=== PATIENT | female | born 1970 | race Caucasian/White ===

== ENCOUNTER 2020-03-28 09:55 | Outpatient (CLI) | payer OTHER, SELFPAY ==
--- NOTE | ~2020-03-28 | MM_ITS ---
EXAMINATION: MM screening [facility] BI w evan HISTORY: Screening mammogram TECHNIQUE: Craniocaudal and mediolateral oblique 3-D tomosynthesis images were obtained and synthetic 2-D images were generated. CAD analysis was submitted and interpreted. COMPARISON: Comparison to multiple prior studies sequentially, with oldest reviewed study dated 09/22. BREAST PARENCHYMAL COMPOSITION: There are scattered areas of fibroglandular density. FINDINGS: There is no evidence of suspicious mass, calcification, or architectural distortion to sugg est malignancy in either breast. There has been no suspicious interval change. IMPRESSION: 1. No mammographic evidence of malignancy. 2. Recommend routine screening mammography in one year. BI-RADS Category 1: Negative Reviewed, dictated and finalized at location A.
== END 2020-03-28 09:56 | disposition home or self-care (01) ==
PROVIDERS: Visit Provider Nurse Practitioner
DX: Z12.31 Encounter for screening mammogram for malignant neoplasm of breast (principal)
CPT/HCPCS: 77063; 77067

== ENCOUNTER 2022-04-07 14:07 | Outpatient (CLI) | payer OTHER, SELFPAY ==
--- NOTE | ~2022-04-07 | MM_ITS ---
EXAMINATION: MM screening [facility] BI w evan HISTORY: Screening mammogram TECHNIQUE: Craniocaudal and mediolateral oblique 3-D tomosynthesis images were obtained and synthetic 2-D images were generated. CAD analysis was submitted and interpreted. COMPARISON: 03/28/2020, 02/06/2019, 02/01/2018 BREAST PARENCHYMAL COMPOSITION: There are scattered areas of fibroglandular density. FINDINGS: RIGHT BREAST: Biopsy changes are noted in the upper outer quadrant right breast There is no suspiciou s mass, calcification, or architectural distortion to suggest malignancy. There has been no significa nt interval change. LEFT BREAST: There is focal asymmetry in the middle third of the central breast. IMPRESSION: 1. Left breast focal asymmetry. 2. Additional mammographic views and possible breast ultrasound are recommended. BI-RADS Category 0: Incomplete: Needs additional imaging evaluation. Reviewed, dictated and finalized at location A. IMPRESSION: 1. Left breast focal asymmetry. 2. Additional mammographic views and possible breast ultrasound are recommended . BI-RADS Category 0: Incomplete: Needs additional imaging evaluation.
== END 2022-04-07 14:08 | disposition home or self-care (01) ==
PROVIDERS: Visit Provider Nurse Practitioner
DX: Z12.31 Encounter for screening mammogram for malignant neoplasm of breast (principal); R92.8 Other abnormal and inconclusive findings on diagnostic imaging of breast
CPT/HCPCS: 77063; 77067

== ENCOUNTER 2022-04-23 13:21 | Outpatient (CLI) | payer OTHER, SELFPAY ==
--- NOTE | ~2022-04-23 | MMUS_ITS ---
EXAMINATION: MM diagnostic [facility] LT w evan, US breast LT limited HISTORY: Left mammographic focal asymmetry reported on 04/07/2022 screening mammogram TECHNIQUE: Additional 3-D tomosynthesis images of the left breast were performed and synthetic 2-D im ages were generated. Rolled medial and rolled lateral craniocaudal views. CAD analysis was submitted and interpreted. High resolution upper outer and lower-outer quadrant left breast ultrasound was perf ormed. COMPARISON: 04/07/2022, 03/28/2020, 02/06/2019 screening mammogram examinations FINDINGS: MAMMOGRAPHIC FINDINGS: Approximately 3.5 mm circumscribed opacity is noted in the posterior outer mid left breast. ULTRASOUND: 1:00 8 cm from nipple: 2.4 mm sonolucency consistent with small cyst 4:00 2 cm from nipple: 2 x 2.7 mm cyst No suspicious mass or shadowing is detected. IMPRESSION: 1. Probable benign findings 2. 6 month diagnostic left mammogram and left breast ultrasound follow-up are recommended BI-RADS Category 3: Probably benign Reviewed, dictated and finalized at location A. IMPRESSION: 1. Probable benign findings 2. 6 month diagnostic left mammogram and left breast ultrasound follow-up are r ecommended BI-RADS Category 3: Probably benign
== END 2022-04-23 13:22 | disposition home or self-care (01) ==
PROVIDERS: Visit Provider Obstetrics & Gynecology Gynecology
DX: R92.8 Other abnormal and inconclusive findings on diagnostic imaging of breast (principal)
CPT/HCPCS: 76642; 77061; 77065; G0279

== ENCOUNTER 2022-10-23 10:20 | Outpatient (CLI) | payer OTHER, SELFPAY ==
--- NOTE | ~2022-10-23 | MMUS_ITS ---
EXAMINATION: MM diagnostic anibal LT w evan, US breast LT limited HISTORY: Six-month follow-up for probably benign left breast mass TECHNIQUE: Craniocaudal, mediolateral, and mediolateral oblique 3-D tomosynthesis images of the left breast were performed and synthetic 2-D images were generated. CAD analysis was submitted and interpr eted. High resolution left breast ultrasound was performed. COMPARISON: 04/23/2022, 04/07/2022, 03/28/2020, 02/06/2019 BREAST PARENCHYMAL COMPOSITION: There are scattered areas of fibroglandular density. FINDINGS: MAMMOGRAPHIC FINDINGS: The previously described mass in the upper outer quadrant of the breast is no longer identified. Ther e has been no suspicious interval change. No suspicious calcification or architectural distortion are identified. ULTRASOUND: The previously described sonographically detected mass at the 1:00 location is no longer identified. There is a stable 3 mm round, circumscribed, hypoechoic mass with no posterior features or internal v ascularity at the 4:00 location 2 cm from the nipple. IMPRESSION: 1. Stable sonographically detected left breast mass. 2. Recommend 6 month follow-up diagnostic mammogram and ultrasound. BI-RADS category 3, probably benign findings. Reviewed, dictated and finalized at location A. COMMUNICATIONS FIELD ENGINEER IMPRESSION: 1. Stable sonographically detected left breast mass. 2. Recommend 6 month follow-up diagnostic mammogram and ultrasound. BI-RADS category 3, probably benign findings.
== END 2022-10-23 10:21 | disposition home or self-care (01) ==
LOC: ANHIMG 10:21
PROVIDERS: Visit Provider Obstetrics & Gynecology Gynecology
DX: N60.02 Solitary cyst of left breast (principal); R92.8 Other abnormal and inconclusive findings on diagnostic imaging of breast
CPT/HCPCS: 76642; 77061; 77065; G0279

== ENCOUNTER 2023-06-21 12:29 | Outpatient (CLI) | payer OTHER, SELFPAY ==
--- NOTE | ~2023-06-21 | MMUS_ITS ---
EXAMINATION: MM diagnostic an[facility] BI w evan, US breast LT limited HISTORY: Six-month follow-up of stable sonographically detected left breast mass at 4:00 2 cm from ni pple TECHNIQUE: Bilateral full field ML, MLO and CC and spot left MLO, MLO and CC 3-D tomosynthesis images were performed and synthetic 2-D images were generated. CAD analysis was submitted and interpreted. High resolution limited left breast ultrasound examination at 12:00 and 4:00 was performed. COMPARISON: 10/23/2022 diagnostic left mammogram and limited left breast ultrasound 04/23/2022 diagnostic left mammogram and limited left breast ultrasound 04/07/2022 bilateral screening mammogram BREAST PARENCHYMAL COMPOSITION: There are scattered areas of fibroglandular density. FINDINGS: MAMMOGRAPHIC FINDINGS: There are 2 biopsy markers on the right; history of prior benign right breast biopsies. Approximately 3.9 no new circumscribed low-density opacity is noted in the anterior upper central lef t breast, benign in appearance. No suspicious mass, architectural distortion, malignant calcification, skin thickening or retraction of either breast is detected. ULTRASOUND: There is a benign calcification in the upper left breast. 4:00 2 cm from nipple: Interval decreased size of previously reported 3 mm, currently measuring appro ximately 1.2 x 1.6 mm. Interval decreased size is most consistent with benign process. IMPRESSION: 1. No mammographic evidence of malignancy 2. Routine annual mammographic screening is recommended. BI-RADS Category 2: Benign finding(s). Reviewed, dictated and finalized at location A. IMPRESSION: 1. No mammographic evidence of malignancy 2. Routine annual mammographic screening is recommended. BI-RADS Category 2: Benign finding(s).
== END 2023-06-21 12:30 | disposition home or self-care (01) ==
LOC: ANHIMG 12:34
PROVIDERS: Visit Provider Obstetrics & Gynecology Gynecology
DX: R92.8 Other abnormal and inconclusive findings on diagnostic imaging of breast (principal)
CPT/HCPCS: 76642; 77062; 77066; G0279

== ENCOUNTER 2023-08-11 11:31 | Outpatient (CLI) | payer OTHER, SELFPAY ==
[2023-08-11 13:29] LABS: Basophils Absolute Auto 0.1 K/mm3 (0.0-0.1); Basophils Percent Auto 0.6 % (0.2-1.2); Eosinophils Absolute Auto 0.1 K/mm3 (0-0.3); Eosinophils Percent Auto 1.3 % (0-4.4); Hematocrit 45.8 % (37.0-47.0); Hemoglobin 14.6 g/dL (12.0-15.0); Immature Granulocyte Absolute 0.02 K/mm3 (0.00-0.031); Immature Granulocyte Percent A 0.3 % (0-0.5); Lymphocytes Absolute Auto 1.54 K/mm3 (0.9-3.2); Lymphocytes Percent Auto 19.6 % (18.3-44.2); Mean Corpuscular HGB Conc 31.9 g/dl (32-36); Mean Corpuscular Volume 90.9 fl (80-100); Mean Platelet Volume 10.4 fl (7.4-10.4); Monocytes Absolute Auto 0.6 K/mm3 (0.1-0.6); Monocytes Percent Auto 7.8 % (2.6-8.5); Neutrophils Absolute Auto 5.5 K/mm3 (1.3-6.7); Neutrophils Percent Auto 70.4 % (45.5-73.1); Platelet Count Result 346 k/mm3 (150-375); Red Blood Count 5.04 M/mm3 (4.2-5.4); Red Cell Distribution Width 14.4 % (11.5-14.5); White Blood Count 7.8 K/mm3 (4.5-10.0)
[2023-08-11 13:38] LABS: INR 0.9; Prothrombin Time 13.1 Seconds (11.1-14.7)
[2023-08-11 15:21] LABS: Alanine Aminotransferase 20 U/L (6-35); Albumin Level 3.9 g/dL (3.5-5.1); Alkaline Phosphatase 73 U/L (38-126); Anion Gap 8 mmol/L (8-16); Aspartate Amino Transferase 29 U/L (14-36); Bilirubin,Total 0.6 mg/dL (0.2-1.3); Blood Urea Nitrogen 10 mg/dL (7-17); CRP 2.4 mg/dL (<1.0); Calcium 8.9 mg/dL (8.4-10.2); Carbon Dioxide 25 mmol/L (22-30); Chloride 106 mmol/L (98-107); Estimated Glomerular Filt Rate > 60; Glucose 150 mg/dL (65-110); Potassium 3.6 mmol/L (3.4-5.0); Sodium 139 mmol/L (137-145)
[2023-08-11 16:35] LABS: Vitamin D 25 Hydroxy 85.1 ng/mL
== END 2023-08-11 11:32 | disposition home or self-care (01) ==
LOC: ANHGOSHLAB 11:34
PROVIDERS: PCP Family Medicine; Visit Provider Nurse Practitioner Family
DX: Z00.00 Encounter for general adult medical examination without abnormal findings (principal); Z13.21 Encounter for screening for nutritional disorder; R23.3 Spontaneous ecchymoses; E53.8 Deficiency of other specified B group vitamins; I10 Essential (primary) hypertension
CPT/HCPCS: 36415; 80053; 82306; 82607; 85025; 85610; 85730; 86140

== ENCOUNTER 2023-11-01 07:53 | Outpatient (CLI) | payer OTHER, SELFPAY | END 2023-11-01 07:54 | disposition home or self-care (01) | LOC: ANHAUDIO 07:53 | PROVIDERS: PCP Family Medicine; Visit Provider Otolaryngology | DX: G43.909 Migraine, unspecified, not intractable, without status migrainosus (principal); H90.6 Mixed conductive and sensorineural hearing loss, bilateral; H81.10 Benign paroxysmal vertigo, unspecified ear; H90.42 Sensorineural hearing loss, unilateral, left ear, with unrestricted hearing on the contralateral side | CPT/HCPCS: 92557; 92567 ==

== ENCOUNTER → 2023-11-26 13:41 | Outpatient (CLI) | payer OTHER, SELFPAY ==
--- NOTE | ~2023-11-26 | XR_ITS ---
XR chest 2V DATE: 11/26/2023 14:07 INDICATION: Shortness of breath, cough for one week. Previous smoker. TECHNIQUE: PA and lateral views COMPARISON: None FINDINGS: Normal heart size. No hilar or mediastinal enlargement. No pulmonary infiltrate or consolid ation, pleural effusion or pulmonary vascular congestion or pneumothorax is detected. IMPRESSION: No active cardiopulmonary disease Reviewed, dictated and finalized at location B. UENCY CHECKER
== END ==
PROVIDERS: PCP Nurse Practitioner Family; Visit Provider Nurse Practitioner Family
DX: R06.02 Shortness of breath (principal); R04.2 Hemoptysis
CPT/HCPCS: 71046

== ENCOUNTER 2023-12-04 10:47 | Outpatient (CLI) | payer OTHER, SELFPAY ==
--- NOTE | ~2023-12-04 | MR_ITS ---
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 These were followed by axial T2-weigh maco, diffusion weighted, gradient, and FLAIR images. Coronal and axial thin cut T1-weighted and T2-we ighted images were performed through the internal auditory canals. Following intravenous administrati on of 20 cc MultiHance gadolinium, T1-weighted fat-sat imaging was performed through the brain in the axial and coronal planes. Thin cut T1-weighted postcontrast imaging was also performed through the i nternal auditory canals in the axial and coronal planes. Findings: No abnormal signal seen in the brain parenchyma. No acute infarct or intracranial hemorrhag e seen. No intracranial mass identified. Ventricles and subarachnoid spaces are unremarkable. Orbits are unremarkable. Paranasal sinuses and m astoid air cells are clear. Major intracranial flow voids appear intact. No mass lesion identified at the CP angles or internal auditory canals. No abnormal postcontrast enhancement identified. IMPRESSION: Unremarkable exam. Reviewed, dictated and finalized at location M. A COTTA ROOFER IMPRESSION: Unremarkable exam.
== END 2023-12-04 10:48 | disposition home or self-care (01) ==
LOC: ANHIMG 10:47
PROVIDERS: PCP Nurse Practitioner Family; Visit Provider Otolaryngology
DX: D33.3 Benign neoplasm of cranial nerves (principal); H90.42 Sensorineural hearing loss, unilateral, left ear, with unrestricted hearing on the contralateral side
CPT/HCPCS: 70553; A9577

== ENCOUNTER 2023-12-30 16:08 | Emergency (ER) | payer OTHER, SELFPAY ==
--- NOTE | ~2023-12-30 | XR_ITS ---
EXAMINATION: XR foot RT min 3V DATE: 12/30/2023 16:30 INDICATION: Right foot pain TECHNIQUE: Dorsoplantar, lateral, and 2 oblique views of the right foot were obtained. COMPARISON: None. FINDINGS: Bone alignment is normal. There is subtle heterotopic ossification projecting dorsal to the distal talus on the lateral view. There is dorsal soft tissue swelling overlying the midfoot. A plan tar calcaneal enthesophyte is noted. The joint spaces are normal. IMPRESSION: 1. Dorsal soft tissue swelling of the foot with subtle heterotopic ossification projecting dorsal to the distal talus on the lateral view. Finding could reflect small chip fracture. Recommend correlatio n for point tenderness at this site. Reviewed, dictated and finalized at location L. CIATE BRAND MANAGER IMPRESSION: 1. Dorsal soft tissue swelling of the foot with subtle heterotopic ossification projecting dorsal to the distal talus on the lateral view. Finding could refle ct small chip fracture. Recommend correlation for point tenderness at this site .
[2023-12-30 16:22] VITALS: BP 133/93; PULSE 111; RESP 20; TEMP 36.2; O2SAT 100
--- NOTE | 2023-12-30 16:22 | ED.FALL ---
HPI - Fall General Chief Complaint: Extremity Injury, Lower Stated Complaint: Right Foot Pain/ Left Hip Time Seen by Provider: 12/30/23 16:11 Source: patient Mode of arrival: ambulatory Limitations: no limitations History of Present Illness HPI Narrative: Patient is a 53-year-old female who presents with right foot pain after rolling foot and falling last Wednesday. Patient reports foot is turpentine distiller to touchmid foot and is very bruised at toes. Patient still able ambulate. Denies any numbness, tingling or weakness to foot. Related Data Home Medications Medication Instructions Recorded Confirmed cetirizine 10 mg tablet (Zyrtec) 10 mg PO DAILY 08/11/23 12/30/23 desogestrel 0.15 mg-ethinyl 1 tablet PO DAILY 08/11/23 12/30/23 estradiol 0.03 mg tablet (Apri) triamcinolone acetonide 0.1 % 1 applic topical BID 08/11/23 12/30/23 topical cream clotrimazole-betamethasone 1 1 applic topical DIRECTED 10/11/23 12/30/23 %-0.05 % topical cream Allergies Allergy/AdvReac Type Severity Reaction Status Date / Time grass pollen Allergy Unknown Asthma Verified 12/30/23 16:31 No Known Allergies Allergy Verified 12/30/23 16:31 Review of Systems Review of Systems: All systems reviewed & are unremarkable except as noted in HPI and below Constitutional: Constitutional: Denies body ache(s), Denies chills, Denies fatigue, Denies fever(s), Denies headache(s), Denies malaise and Denies weakness Eyes: Eyes: Denies blurry vision, Denies irritation and Denies loss of vision ENT: Denies otalgia, Denies headache(s), Denies nasal discharge, Denies sinus pain and Denies sore throat Cardiovascular: Cardiovascular: Denies chest pain, Denies irregular heart rhythm and Denies dyspnea Respiratory: Respiratory: Denies dyspnea Gastrointestinal: Gastrointestinal: Denies abdominal pain, Denies melena, Denies hematochezia, Denies diarrhea, Denies nausea and Denies vomiting Musculoskeletal: Musculoskeletal: Denies back pain, Denies myalgias and Denies arthralgias Integumentary/Breasts: Skin/Breast: Denies pruritus and Denies rash Neurologic: Denies headache(s), Denies loss of vision and Denies weakness Psychiatric: Psychiatric: Reports no additional psychiatric complaints Endocrine: Endocrine: Denies fatigue PMFSH Past Medical History Medical History Allergies Asthma IBS (irritable bowel syndrome) Migraine Petechiae SOB (shortness of breath) on exertion Vertigo Surgical History Surgical History H/O shoulder surgery Left 03/25/2023 Family History Family History Father Hypertension Heart disease Cerebrovascular accident Mother Asthma Diabetes mellitus Hypertension Depression Heart disease Sibling Asthma Hypertension Depression Heart disease Thyroid disorder Daughter Asthma Grandparent Hypertension Heart disease Cerebrovascular accident Social History Social History Smoking status: Former smoker Alcohol intake: never Substance use: current Substance use type: does not use Comments At time of signature, agree with nursing past medical, surgical, social and family history. There is no relevant family history pertinent to the presenting complaint. Exam Const: General: cooperative, healthy appearing, comfortable, no acute distress and well nourished Nutritional Appearance: well nourished Orientation/consciousness: patient oriented x3 Limitations: no limitations HENMT: Head: normal to inspection, normocephalic and atraumatic Ears: hearing grossly normal bilaterally and external ears normal Face/Nose/Sinus: Normal external nose present, normal facial exam and face symmetric Face and sinus: normal facial exam and face symmetric Mouth: Yes lip normal Eyes: General: appe
== END 2023-12-30 17:45 | disposition home or self-care (01) ==
PROVIDERS: Emergency Provider Nurse Practitioner Family; PCP Nurse Practitioner Family
DX: S92.901A Unspecified fracture of right foot, initial encounter for closed fracture (principal); Z79.899 Other long term (current) drug therapy; Z87.891 Personal history of nicotine dependence; W19.XXXA Unspecified fall, initial encounter
CPT/HCPCS: 29515; 73630; 99214; G0463

== ENCOUNTER 2024-04-10 15:43 | Emergency (ER) | payer OTHER, SELFPAY ==
--- NOTE | ~2024-04-10 | XR_ITS ---
EXAMINATION: XR chest 2V DATE: 04/10/2024 16:33 INDICATION: Worsening chest pain. Shortness of breath. TECHNIQUE: Frontal and lateral views of the chest were obtained. COMPARISON: Chest 2 views 11/26/2023 FINDINGS: There is no pneumonia, pleural effusion, or pneumothorax. The heart size is normal. There i s a suture anchor in left humeral head. IMPRESSION: 1. No acute cardiopulmonary disease. Reviewed, dictated and finalized at location A.
--- NOTE | 2024-04-10 15:44 | ECG_ITS ---
SEE SCANNED COPY FOR CONFIRMED REPORT MTDD
[2024-04-10 15:46] VITALS: PULSE 115; RESP 18; TEMP 37.1; O2SAT 99
[2024-04-10 16:05] LABS: Basophils Absolute Auto 0.1 K/mm3 (0.0-0.1); Basophils Percent Auto 0.7 % (0.2-1.2); Eosinophils Absolute Auto 0.1 K/mm3 (0-0.3); Eosinophils Percent Auto 0.9 % (0-4.4); Hematocrit 44.6 % (37.0-47.0); Hemoglobin 14.6 g/dL (12.0-15.0); Immature Granulocyte Absolute 0.04 K/mm3 (0.00-0.031); Immature Granulocyte Percent A 0.4 % (0-0.5); Lymphocytes Absolute Auto 2.32 K/mm3 (0.9-3.2); Mean Corpuscular HGB Conc 32.7 g/dl (32-36); Mean Corpuscular Hemoglobin 28.3 pg (26-34); Mean Corpuscular Volume 86.4 fl (80-100); Mean Platelet Volume 9.9 fl (7.4-10.4); Monocytes Absolute Auto 0.6 K/mm3 (0.1-0.6); Monocytes Percent Auto 6.5 % (2.6-8.5); Neutrophils Absolute Auto 5.9 K/mm3 (1.3-6.7); Neutrophils Percent Auto 65.5 % (45.5-73.1); Platelet Count Result 306 k/mm3 (150-375); Red Blood Count 5.16 M/mm3 (4.2-5.4); Red Cell Distribution Width 14.2 % (11.5-14.5); White Blood Count 8.9 K/mm3 (4.5-10.0)
--- NOTE | 2024-04-10 16:16 | ED.GENADULT ---
HPI - General Adult General Chief complaint: Chest Pain <Sarah Ortiz APRN - Last Filed: 04/10/24 16:24> Stated complaint: chest pain, sob <Sarah Ortiz BREWERY TECHNICIAN - Last Filed: 04/10/24 16:24> Time Seen by Provider: 04/10/24 16:16 <Sarha Oliva March BREWERY TECHNICIAN - Last Filed: 04/10/24 16:24> Focused HPI: Chrissy Llanos is a 53 y/o female who presents with reports of having a hard time breathing for about 10 days that she thought was related to acid reflux burning her esophagus, she called her PCP the following day 9 days ago and was sent a new inhaler Budesonide and formoterol - then she got over heated this past Wednesday while mowing and started to have mid sternal and then tightness across chest and she states it felt like someone was sitting on top of her. She states that since Wednesday she is still having some chest pain she states stabbing to the left side, pressure across the whole chest and having an upper back ache between her shoulder blades SHe also state she feels nausea/queazy feeling PMHx: of HTN/ slight asthma / previous smoker GENERAL: no acute distress. HEAD: Normocephalic, atraumatic. CHEST: Clear to auscultation. ?No respiratory distress. HEART: Regular rate and rhythm.? NEURO: ?Alert and oriented x3. Patient screened in triage and initial orders placed.? ?Additional care and disposition to be based upon?diagnostic testing and treatment. <Sarah Ortiz, MARICRUZ - Last Filed: 04/10/24 16:24> Source: patient <Darrell Starr MD - Last Filed: 04/10/24 20:22> Mode of arrival: ambulatory <Darrell Starr MD - Last Filed: 04/10/24 20:22> Limitations: no limitations <Darrell Starr MD - Last Filed: 04/10/24 20:22> History of Present Illness HPI narrative: 53-year-old with a history of asthma, hypertension and with the complaints of midsternal chest pain on and off for last 10 days. Patient states the pain is mostly in the epigastric area gets better after eating food. She also states that 2 days ago while she was moving well and she got overheated and her pain worsen she was also short of breath. She saw her primary doctor the day EKG in the office and was advised to go to the ER. No previous history of CAD. Patient states that she had stress test done 2 years ago in [place] and was told it was unremarkable. <Darrell Starr MD - Last Filed: 04/10/24 20:22> Onset (ago): day(s) (10) <Darrell Starr MD - Last Filed: 04/10/24 20:22> Severity: moderate <Darrell Starr MD - Last Filed: 04/10/24 20:22> Related Data Home medications: Home Medications Medication Instructions Recorded Confirmed cetirizine 10 mg tablet (Zyrtec) 10 mg PO DAILY 08/11/23 04/10/24 desogestrel 0.15 mg-ethinyl 1 tablet PO DAILY 08/11/23 04/10/24 estradiol 0.03 mg tablet (Apri) clotrimazole-betamethasone 1 1 applic topical DIRECTED 10/11/23 04/10/24 %-0.05 % topical cream <Sarah Ortiz, BREWERY TECHNICIAN - Last Filed: 04/10/24 16:24> Allergies/adverse reactions: Allergies Allergy/AdvReac Type Severity Reaction Status Date / Time grass pollen Allergy Unknown Asthma Verified 04/10/24 14:38 dust Allergy Unknown Unknown Uncoded 04/10/24 14:38 <Sarah Ortiz, BREWERY TECHNICIAN - Last Filed: 04/10/24 16:24> [facility] Past Medical History Medical History: Medical History Allergies Asthma Chest pain at rest IBS (irritable bowel syndrome) Migraine Petechiae Right foot sprain SOB (shortness of breath) on exertion Vertigo <Sarah Ortiz, BREWERY TECHNICIAN - Last Filed: 04/10/24 16:24> Surgical History Surgical History: Surgical History H/O shoulder surgery Left 03/25/2023 <Sarah Ortiz, BREWERY TECHNICIAN - Last Filed: 04/10/24 16:24> Family History Family History: Family History Father Hypertension Heart disease Cerebrovascular accident Mother
[2024-04-10 16:18] LABS: Alanine Aminotransferase 19 U/L (6-35); Albumin Level 4.6 g/dL (3.5-5.1); Alkaline Phosphatase 85 U/L (38-126); Anion Gap 14 mmol/L (4-12); Aspartate Amino Transferase 24 U/L (14-36); Bilirubin,Total 0.6 mg/dL (0.2-1.3); Blood Urea Nitrogen 14 mg/dL (7-17); Calcium 9.2 mg/dL (8.4-10.2); Carbon Dioxide 19 mmol/L (22-30); Chloride 105 mmol/L (98-107); Estimated CRCL calculation 81 ml/min; Estimated Glomerular Filt Rate > 60; Glucose 158 mg/dL (65-110); Lipase 79 U/L (23-300); Potassium 3.6 mmol/L (3.4-5.0); Sodium 138 mmol/L (137-145)
[2024-04-10 16:19] LABS: Prothrombin Time 13.1 Seconds (11.1-14.7)
[2024-04-10 16:20] LABS: Partial Thromboplastin Time 24.3 Seconds (22.3-36.8)
[2024-04-10 16:30] LABS: Troponin I < 0.012 ng/mL (0.000-0.034)
[2024-04-10 18:14] LABS: D Dimer 0.32 ug/mL (<0.48)
[2024-04-10 18:16] LABS: NT Pro B Type Natriuretic Pept 116 pg/mL (19.9-100)
[2024-04-10 18:46] VITALS: BP 150/92; PULSE 91; RESP 16; O2SAT 100
--- NOTE | 2024-04-10 18:47 | ECG_ITS ---
SEE SCANNED COPY FOR CONFIRMED REPORT MTDD
[2024-04-10 19:17] LABS: Troponin I < 0.012 ng/mL (0.000-0.034)
[2024-04-10 19:18] VITALS: BP 150/92; PULSE 97; RESP 20; O2SAT 98
[2024-04-10] MEDS: KETOROLAC 30 MG/ML VIAL (*BKC) IM (19:51)
== END 2024-04-10 20:24 | disposition home or self-care (01) ==
PROVIDERS: Nurse Practitioner Family; Emergency Provider Family Medicine; PCP Nurse Practitioner Family
DX: R07.2 Precordial pain (principal); J45.909 Unspecified asthma, uncomplicated; I10 Essential (primary) hypertension; K58.9 Irritable bowel syndrome, unspecified; Z87.891 Personal history of nicotine dependence; R94.31 Abnormal electrocardiogram [ECG] [EKG]
CPT/HCPCS: 36415; 71046; 80053; 83690; 83880; 84484; 85025; 85380; 85610; 85730; 93005; 96372; 99284; J1885

== ENCOUNTER 2024-04-13 11:35 | Outpatient (CLI) | payer OTHER, SELFPAY | END 2024-04-13 11:36 | disposition home or self-care (01) | LOC: ANHGOSHLAB 11:37 | PROVIDERS: PCP Nurse Practitioner Family; Visit Provider Nurse Practitioner | DX: E55.9 Vitamin D deficiency, unspecified (principal) | CPT/HCPCS: 36415; 82306 ==

== ENCOUNTER 2024-04-20 15:00 | Outpatient (CLI) | payer OTHER, SELFPAY ==
--- NOTE | ~2024-04-20 | CT_ITS ---
EXAMINATION: CT sinus wo con DATE: 04/20/2024 15:35 INDICATION: Chronic maxillary sinusitis. TECHNIQUE: Computed tomography (CT) of the paranasal sinuses was performed without intravenous contra st. The dose-length product (DLP) was 294.13 mGy-cm. Iterative reconstruction was used. COMPARISON: None FINDINGS: Poorly pneumatized frontal sinuses. There is otherwise normal development and pneumatizatio n of the paranasal sinuses. The sphenoid, ethmoid, and maxillary sinuses are clear. The bilateral ost iomeatal complexes are patent. Visualized soft tissues are unremarkable. IMPRESSION: Poorly pneumatized frontal sinuses, otherwise normal CT sinus findings. Reviewed, dictated and finalized at location K.
== END 2024-04-20 15:01 | disposition home or self-care (01) ==
PROVIDERS: PCP Nurse Practitioner Family; Visit Provider Otolaryngology
DX: J34.89 Other specified disorders of nose and nasal sinuses (principal); J32.0 Chronic maxillary sinusitis; R51.9 Headache, unspecified
CPT/HCPCS: 70486

== ENCOUNTER 2024-04-26 10:00 | Outpatient (RCR) | payer OTHER, SELFPAY ==
--- NOTE | 2024-03-15 12:23 | OPREHPOC ---
Outpatient Therapy Plan of Care This is a Multidisciplinary Plan of Care that may contain components documented by all disciplines (PT, OT, and ST.) PT Problem 1 PT Problem #1 Knowledge Deficit PT Goal 1 Goal 1. Patient will perform independent HEP Target Visit 2 PT Problem 2 PT Problem #2 Pain PT Goal 1 Goal 1. No pain with pelvic exam 2. Patient able to sit at least 30 minutes without pain Target Visit 5 PT Problem 3 PT Problem #3 Impaired Strength PT Goal 1 Goal 1. Improve sonali hip strength to 5/5 in all planes 2. Improve pelvic floor strength to 3/5 and endurance to 10 seconds to decrease incontinence Target Visit 5
--- NOTE | 2024-03-15 12:23 | PTOPEVAL1 ---
Assessment and note entered by Sharon Knight DPT Evaluation Information Assessment Status Evaluation Subjective Information The patient reports pelvic pain that she has always had with intercourse but has recently gotten dramatically worse after a fall and landing on her L hip in December. Also fractured her R foot during that fall and went to therapy elsewhere. Pain with pelvic exam. Highest 8/10 and lowest 2/10. Also reports frequent incontinence, multiple times a day and uses a washrag to prevent leaks otherwise she will need to change clothes. Voids 5-6 times a day and 1-2 at night. Pain with sitting and is unable to sit to watch tv right now . BM 2-3 times a day, often gets diarrhea. Two previous vaginal deliveries with stitching/tearing . No other TECHNICAL COMMUNICATOR or b/b history. Patient goal: decrease pain Returns to MD in August Reported Pain Level Pain Score 5: Self Report Assessment PT Clinical Summary The patient is presenting to skilled therapy with an exacerbation of pelvic pain following a fall in December. She presents with increased pelvic floor muscle tone and pain on exam, and decreased hip, core, and pelvic floor strength which are contributing to her pain and difficulty with activities including sitting. She will highly benefit from therapy to address these impairments in order to reduce pain and improve function. Plan of Care Interventions Electrical Stimulation,Gait Training,Hot Pack/Cold Pack,Manual Therapy,Neuro Re-education,Patient/ Caregiver Education,Therapeutic Activities, Therapeutic Exercise PT Services Indicated Yes Treatment Frequency and 1 time a week for 5 visits Duration These treatments will address the objective and functional deficits as defined above. The patient will be advanced safely and appropriately in order for the patient to progress towards his/her prior level of function. Additional exercises will be introduced and as well as a comprehensive home exercise program upon discharge, if needed, ?to ensure carryover of functional gains achieved in the clinic. This treatment plan has been reviewed and agreement upon by the patient.
--- NOTE | 2024-04-26 10:26 | OPREHPOC ---
Outpatient Therapy Plan of Care This is a Multidisciplinary Plan of Care that may contain components documented by all disciplines (PT, OT, and ST.) PT Problem 1 PT Problem #1 Knowledge Deficit PT Goal 1 Goal 1. Patient will perform independent HEP Target Visit 2 Progress Met PT Problem 2 PT Problem #2 Pain PT Goal 1 Goal 1. No pain with pelvic exam 2. Patient able to sit at least 30 minutes without pain Target Visit 5 Progress Met PT Problem 3 PT Problem #3 Impaired Strength PT Goal 1 Goal 1. Improve sonali hip strength to 5/5 in all planes 2. Improve pelvic floor strength to 3/5 and endurance to 10 seconds to decrease incontinence Target Visit 5 Progress Partially Met Comment 1. 4+/5 2. not met
--- NOTE | 2024-04-26 10:26 | PTOPDC ---
Assessment and note entered by Sharon Knight DPT Evaluation Information Assessment Status Discharge Subjective Information Highest pain in the last week 3/10 and lowest 0/10 . Pain is not as intense or as often as prior to therapy. Still has pain with sitting certain ways but she is able to adjust to eliminate pain. Unsure if continued dyspareunia. Incontinence with a cough or sneeze, 2 days in the last week. Still using a wash rag as a precaution. Overall feels confident discharging from therapy at this time. Reported Pain Level Pain Score 0: Self Report Assessment PT Clinical Summary The patient has made good progress in therapy and reports significantly decreased pain overall. She also reports decreased frequency of incontinence, is now occurring 2 times a week instead of daily. She demonstrates improved core and LE strength and no pelvic floor pain this visit. Due to her progress plan for discharge at this time, she has been educated in a thorough HEP and to follow up with MD and/or PT as needed. Plan of Care PT Services Indicated No
== END 2024-04-26 11:51 | disposition home or self-care (01) ==
LOC: ANHGOSHPT 10:00
PROVIDERS: PCP Nurse Practitioner Family; Visit Provider Nurse Practitioner
DX: R10.2 Pelvic and perineal pain (principal)
CPT/HCPCS: 97110; 97140; 97161; 97530

== ENCOUNTER 2024-07-05 14:56 | Outpatient (CLI) | payer OTHER, SELFPAY ==
--- NOTE | ~2024-07-05 | MM_ITS ---
EXAMINATION: MM screening [facility] BI w evan HISTORY: Screening TECHNIQUE: Craniocaudal and mediolateral oblique 3-D tomosynthesis images were obtained and synthetic 2-D images were generated. CAD analysis was submitted and interpreted. COMPARISON: Comparison to multiple prior studies sequentially, with oldest reviewed study dated 02/06. BREAST PARENCHYMAL COMPOSITION: Not dense: There are scattered areas of fibroglandular density. FINDINGS: There is no evidence of suspicious mass, calcification, or architectural distortion to sugg est malignancy in either breast. There has been no suspicious interval change. IMPRESSION: 1. No mammographic evidence of malignancy. 2. Recommend routine screening mammography in one year. BI-RADS Category 1: Negative Reviewed, dictated and finalized at location B.
== END 2024-07-05 14:57 | disposition home or self-care (01) ==
LOC: ANHIMG 14:57
PROVIDERS: PCP Family Medicine; Visit Provider Nurse Practitioner
DX: Z12.31 Encounter for screening mammogram for malignant neoplasm of breast (principal)
CPT/HCPCS: 77063; 77067

== ENCOUNTER 2024-08-23 10:51 | Outpatient (CLI) | payer OTHER, SELFPAY ==
--- NOTE | ~2024-08-23 | US_ITS ---
EXAMINATION: US thyroid DATE: 08/23/2024 11:22 INDICATION: Nontoxic single thyroid nodule. TECHNIQUE: Multiple ultrasound images of the thyroid were obtained. COMPARISON: None. FINDINGS: The right thyroid lobe measures 4.6 x 1.4 x 1.9 cm. The left thyroid lobe measures 4.6 x 1.2 x 1.9 c m. In the left thyroid lobe, there is a 10 mm solid, hypoechoic, wider than tall nodule with smooth margin without echogenic foci (TI-RADS TR4). In the left thyroid lobe, there is a 3 mm nodule. In the left thyroid lobe, there is a 2 mm nodule. In the right thyroid lobe, there is a 7 mm solid, hypoech oic, wider than tall nodule with smooth margin without echogenic foci (TR4). In the right thyroid lob e, there is a 4 mm nodule. In the thyroid isthmus, there is a 9 mm solid, hypoechoic, wider than tall nodule with smooth margin without echogenic foci (TR4). IMPRESSION: 1. Small thyroid nodules. Thyroid ultrasound is recommended in one year. Reviewed, dictated and finalized at location A.
== END 2024-08-23 10:52 | disposition home or self-care (01) ==
LOC: MICIMG 10:51
PROVIDERS: PCP Family Medicine; Visit Provider Family Medicine
DX: E04.2 Nontoxic multinodular goiter (principal)
CPT/HCPCS: 76536

== ENCOUNTER 2024-11-23 17:40 | Emergency (ER) | payer OTHER, SELFPAY ==
--- NOTE | ~2024-11-23 | XR_ITS ---
XR hand LT min 3V Ordering provider: Ledy La APRN History: . felt a pop, pain in left thumb/1st metacarpal, . Comparison: None. FINDINGS: BONES: No definite acute fracture or dislocation. Possibility of a fracture in the distal metaphysis of the proximal phalanx of the left thumb is not excluded. Follow-up advised. JOINT SPACES: Well maintained. SOFT TISSUES: Unremarkable. IMPRESSION: No definite acute osseous abnormality left hand. Possibility of a fracture in the distal metaphysis o f the proximal phalanx of the left thumb is not excluded. Clinical correlation and Follow-up advised. Reviewed, dictated and finalized at location A. TRICAL DESIGN TECHNICIAN IMPRESSION: No definite acute osseous abnormality left hand. Possibility of a fracture in t he distal metaphysis of the proximal phalanx of the left thumb is not excluded. Clinical correlation and Follow-up advised.
[2024-11-23 18:00] VITALS: BP 149/97; PULSE 76; RESP 16; TEMP 36.7; O2SAT 100
--- NOTE | 2024-11-23 18:01 | ED_ITS ---
HPI - Extremity Injury (Upper) General Chief Complaint: Extremity Problem,Nontraumatic Stated Complaint: left hand issue Time Seen by Provider: 11/23/24 17:41 Source: patient Mode of arrival: ambulatory Limitations: no limitations History of Present Illness HPI narrative: Patient is a 54-year-old female who presents with left hand pain after feeling a pop yesterday. Patient reports it is painful to move the thumb in all directions. Has been wearing brace since it happened. Denies any numbness, tingling, weakness. Related Data Home Medications ?Medication ?Instructions ?Recorded ?Confirmed ?Last Taken ?Type cetirizine 10 mg tablet (Zyrtec) 10 mg PO DAILY 08/11/23 11/23/24 Unknown History metoprolol succinate 25 mg 25 mg PO DAILY 08/14/24 11/23/24 Unknown History tablet,extended release 24 hr gabapentin 300 mg capsule 300 mg PO HS PRN pain 11/02/24 11/02/24 Unknown History hydrocodone 5 mg-acetaminophen 325 2 tablet PO Q4H PRN pain 11/02/24 11/23/24 Unknown History mg tablet Allergies Allergy/AdvReac Type Severity Reaction Status Date / Time strawberry Allergy Mild Abdominal Verified 11/23/24 18:22 Pain grass pollen Allergy Unknown Asthma Verified 11/23/24 18:22 dust Allergy Unknown Unknown Uncoded 11/23/24 18:22 peanuts AdvReac Mild Abdominal Uncoded 11/23/24 18:22 Pain Review of Systems Review of Systems: All systems reviewed & are unremarkable except as noted in HPI and below Constitutional: Constitutional: Denies body ache(s), Denies chills, Denies fatigue, Denies fever(s), Denies headache(s), Denies malaise and Denies weakness Eyes: Eyes: Denies blurry vision, Denies irritation and Denies loss of vision ENT: Denies otalgia, Denies headache(s), Denies nasal discharge, Denies sinus pain and Denies sore throat Cardiovascular: Cardiovascular: Denies chest pain, Denies irregular heart rhythm and Denies dyspnea Respiratory: Respiratory: Denies dyspnea Gastrointestinal: Gastrointestinal: Denies abdominal pain, Denies melena, Denies hematochezia, Denies diarrhea, Denies nausea and Denies vomiting Musculoskeletal: Musculoskeletal: Denies back pain, Denies myalgias and Reports arthralgias Integumentary/Breasts: Skin/Breast: Denies pruritus and Denies rash Neurologic: Denies headache(s), Denies loss of vision and Denies weakness Psychiatric: Psychiatric: Reports no additional psychiatric complaints Endocrine: Endocrine: Denies fatigue PMFSH Past Medical History Medical History Prediabetes Vesicular eczema of hands and feet Deafness in left ear GERD (gastroesophageal reflux disease) Right foot sprain Sensorineural hearing loss, unilateral, left ear, with unrestricted hearing on the contralateral side Asthma Chronic nonallergic rhinitis Hypertension BPPV (benign paroxysmal positional vertigo) Vertigo IBS (irritable bowel syndrome) Migraine Surgical History Surgical History H/O shoulder surgery Left 03/25/2023 Family History Family History Father Hypertension Heart disease Cerebrovascular accident Mother Asthma Diabetes mellitus Hypertension Depression Heart disease Sibling Asthma Hypertension Depression Heart disease Thyroid disorder Daughter Asthma Grandparent Hypertension Heart disease Cerebrovascular accident Social History Social History Social History: Caffeine-daily Smoking status: Former smoker Tobacco type: cigarettes Smoking end date: 11/22/18 Alcohol intake: never Substance use: never Substance use type: does not use Living arrangements: with family Occupation/Education: unemployed Gender identity (if verbalized by the patient): Female Spiritual care concerns: No Agree to blood products: Yes Comments At time of signature, agree with nursing past medical, surgical, social and family history. There is no relevant family history pertinent to the presenting complaint. Exam Const: General: cooperative, healthy appearing, comfortable, no acute distress and well nourished Nutritional Appearance: well nourished Orientation/consciousness: patient oriented x3 Limitations: no limitations HENMT: Head: normal to inspection, normocephalic and atraumatic Ears: hearing grossly normal bilaterally and external ears normal Face/Nose/Sinus: Normal external nose present, normal facial exam and face symmetric Face and sinus: normal facial exam and face symmetric Mouth: Yes lip normal Eyes: General: appearance normal, both eyes and all related structures Alignment and Position: alignment normal and position normal Periorbital: periorbital findings normal Eyelids: eyelids normal Pupils: Equal, round and reactive pupils present EOM: EOMs intact bilaterally Neck: Neck: normal visual inspection, full ROM and supple Chest: Chest palpation & inspection: normal inspection of the chest Resp: Effort & Inspection: normal respiratory effort and able to speak in complete sentences Auscultation: clear to auscultation bilaterally Cardio: Rate: regular rate Rhythm: regular rhythm Heart sounds: S1 normal heart sound present and S2 normal heart sound present GI: Inspection: normal to inspection Skin: General skin exam: normal color and no rashes or lesions noted Neuro: General: patient oriented x3 and moves all extremities Cranial nerves: Yes Equal, round and reactive pupils present Speech: normal speech Gait exam (Neuro): Normal gait present Extrem: General: normal to inspection, full ROM and no edema Left upper extremity: wrist tenderness of the anatomic snuffbox, normal ROM, normal vascular exam and radial pulse present; no swelling and no unusual warmth and hand normal capillary refill, neuromotor exam normal Details: wrist extension normal and fingers 2-5 ABduction normal, neuromotor exam abnormal Details: thumb opposition abnormal Details: limited by pain, thumb IP flexion abnormal Details: limited by pain and thumb ADduction abnormal Details: limited by pain, neurosensory exam normal Details: radial nerve sensory function normal, ulnar nerve sensory function normal, median nerve sensory function normal and digital nerve sensory function normal, tendon exam normal Location: of all digits and abnormal ROM of finger pain with active ROM of the thumb Psych: Appearance: grossly normal and well kempt Mental Status: mental status grossly normal Speech and movement: Normal speech and movement present Affect: normal affect Attitude: cooperative Thought process: Normal thought process present Course Course Emergency Course: Patient is aware of diagnosis, understands and agrees to treatment plan. Anticipatory guidance given. Patient agrees to follow-up as directed and is aware of reasons to seek care at the emergency department. Portions of this record may have been created with voice recognition software Level of Care: Express Care Visit Vital Signs Vital signs: Vital Signs Temperature 36.7 C 11/23/24 18:00 Pulse Rate 76 11/23/24 18:00 Respiratory Rate 16 11/23/24 18:00 Blood Pressure 149/97 H 11/23/24 18:00 Pulse Oximetry 100 11/23/24 18:00 Oxygen Delivery Room Air 11/23/24 18:00 Temperature 36.7 C 11/23/24 18:00 Pulse Rate 76 11/23/24 18:00 Respiratory Rate 16 11/23/24 18:00 Blood Pressure 149/97 H 11/23/24 18:00 Pulse Oximetry 100 11/23/24 18:00 Oxygen Delivery Room Air 11/23/24 18:00 Reviewed MDM - Extremity Injury (Upper) MDM Narrative Medical decision making narrative: Patient not having pain to possible fracture site. Pain is primarily in the anatomical snuffbox. Discussed follow-up with PCP for potential repeat imaging in a week. Pt well hydrated appearing, in no respiratory distress, hemodynamically stable. Recommend supportive care. The patient is stable at time of discharge the clinical impression was discussed and the patient was given the opportunity to ask questions, which were addressed as completely as possible given the information available at present. Anticipatory guidance and return to care precautions were discussed and the importance of primary care follow-up was stressed and encouraged. The patient voiced understanding of the plan, indications to return, and the need for follow-up. Patient is appropriate for outpatient treatment and follow-up. Differential Diagnosis Differential diagnosis: Likely sprain and strain of wrist, fracture of wrist, finger sprain and fracture of hand Medical Records Attestation: I reviewed the patient's medical records. Imaging Data Radiologist's impression: XR hand LT min 3V Ordering provider: Ledy La APRN History: . felt a pop, pain in left thumb/1st metacarpal, . Comparison: None. FINDINGS: BONES: No definite acute fracture or dislocation. Possibility of a fracture in the distal metaphysis of the proximal phalanx of the left thumb is not excluded. Follow-up advised. JOINT SPACES: Well maintained. SOFT TISSUES: Unremarkable. IMPRESSION: No definite acute osseous abnormality left hand. Possibility of a fracture in the distal metaphysis of the proximal phalanx of the left thumb is not excluded. Clinical correlation and Follow-up advised. Discharge Plan Discharge Clinical Impression: Left wrist sprain Qualifiers: Encounter type: initial encounter Qualified Code(s): S63.502A - Unspecified sprain of left wrist, initial encounter Patient Disposition: Home, Self-Care Condition: Stable Instructions: Wrist Sprain (ED) Additional Instructions: Xray showed possible fracture of thumb. Since you are more tender down in your wrist, I want you to follow up with your PCP for repeat imaging in a week if not improving with steroids and muscle relaxers. Minimize activities that aggravate the condition The RICE protocol. Follow the RICE protocol as soon as possible after your injury:. Ice should be immediately applied to keep the swelling down. It can be used for 20 to 30 minutes, three or four times daily. Do not apply ice directly to your skin. Compression dressings, bandages or nicky-wraps will immobilize and support your injured wrist. Elevate your Wrist above the level of your heart as often as possible during the first 48 hours. Medication: Nonsteroidal anti-inflammatory drugs (NSAIDs) such as ibuprofen and naproxen can help control pain and swelling. Because they improve function by both reducing swelling and controlling pain, they are a better option for mild sprains than narcotic pain medicines. Please schedule a follow-up visit with your personal physician for further evaluation and treatment within 1week OR If your symptoms persist, change or worsen significantly before you can contact your personal physician then please, without delay, go to the emergency department for further evaluation. Your blood pressure was elevated above 120/80 today at Urgent Care. This puts you above the threshold for follow up visit with a primary care provider. High blood pressure does not usually cause any symptoms, however it may lead to kidney failure, stroke, heart disease just to name a few if untreated . Many people are anxious when seeing a provider or nurse. As a result, you are not diagnosed with hypertension at this time unless your blood pressure is persistently high at two office visits at least one week apart. Some things that can help lower blood pressure are lifestyle modifications, such as light exercise, decreased salt in diet, and weight loss. It is important to follow up with a PCP about this within 1 week. Patient Language: Guamanian Prescriptions: New prednisone 20 mg tablet 40 mg PO DAILY 5 Days Qty: 10 0RF baclofen 10 mg tablet 10 mg PO BID Qty: 10 0RF No Action esomeprazole magnesium [Nexium] 40 mg capsule,delayed release(DR/EC) 40 mg PO DAILY Qty: 90 2RF cetirizine [Zyrtec] 10 mg tablet 10 mg PO DAILY metoprolol succinate 25 mg tablet extended release 24 hr 25 mg PO DAILY hydrocodone-acetaminophen 5-325 mg tablet 2 tablet PO Q4H PRN (Reason: pain) gabapentin 300 mg capsule 300 mg PO HS PRN (Reason: pain) albuterol sulfate 90 mcg/actuation HFA aerosol inhaler See Rx Instructions .ROUTE .COMPLEX Qty: 6.7 2RF Dose Instruction: INHALE 1 PUFF BY MOUTH EVERY 4 HOURS NEEDED FOR SHORTNESS OF BREATH OR WHEEZING Rx Instructions: INHALE 1 PUFF BY MOUTH EVERY 4 HOURS NEEDED FOR SHORTNESS OF BREATH OR WHEEZING budesonide-formoterol [Symbicort] 80-4.5 mcg/actuation HFA aerosol inhaler 2 puff inhalation Q12H Qty: 10.2 1RF Patient Comments: pt states no longer taking bupropion HCl [Wellbutrin XL] 150 mg tablet extended release 24 hr 150 mg PO QAM Qty: 90 1RF sumatriptan succinate [Imitrex] 100 mg tablet See Rx Instructions PO .COMPLEX Qty: 9 3RF Rx Instructions: take 1 tab at onset of headache; if no relief, may repeat 1 tab after at least 2 hrs; max = 2 tabs/24 hrs PO Follow-up/Referrals: Milad Duarte MD [Primary Care Provider] - (Tenderness to the anatomical snuffbox. X-ray showed no fracture to the area.) Stand Alone Forms: Work/School Release IP Time of Disposition: 19:34
== END 2024-11-23 19:37 | disposition home or self-care (01) ==
PROVIDERS: Emergency Provider Nurse Practitioner Family; PCP Family Medicine
DX: S63.502A Unspecified sprain of left wrist, initial encounter (principal); X58.XXXA Exposure to other specified factors, initial encounter; I10 Essential (primary) hypertension; R73.03 Prediabetes; K21.9 Gastro-esophageal reflux disease without esophagitis; J45.909 Unspecified asthma, uncomplicated
CPT/HCPCS: 73130; 99213; G0463

== ENCOUNTER 2024-12-08 14:15 | Outpatient (CLI) | payer OTHER, SELFPAY ==
--- NOTE | ~2024-12-08 | XR_ITS ---
EXAM: XR wrist LT w scaphoid DATE: 12/08/2024 14:32 HISTORY: M25.532 - Pain in left wrist . COMPARISON: 11/23/2024. FINDINGS: Normal mineralization. No fracture or dislocation. No lytic or blastic lesion. Mild scatte red degenerative changes. No erosion or periosteal change. Soft tissues within normal limits. IMPRESSION: No acute osseous finding in the left wrist. Reviewed, dictated and finalized at location K. ARCH COMPUTING SPECIALIST
== END 2024-12-08 14:16 | disposition home or self-care (01) ==
PROVIDERS: PCP Plastic Surgery; Visit Provider Nurse Practitioner Family
DX: M25.532 Pain in left wrist (principal)
CPT/HCPCS: 73110

== ENCOUNTER 2025-01-19 12:43 | Outpatient (CLI) | payer OTHER, SELFPAY ==
[2025-01-19 18:30] LABS: Basophils Absolute Auto 0.1 K/mm3 (0.0-0.1); Basophils Percent Auto 0.9 % (0.2-1.2); Eosinophils Absolute Auto 0.1 K/mm3 (0-0.3); Hematocrit 45.6 % (37.0-47.0); Hemoglobin 14.3 g/dL (12.0-15.0); Immature Granulocyte Absolute 0.01 K/mm3 (0.00-0.031); Immature Granulocyte Percent A 0.1 % (0-0.5); Lymphocytes Percent Auto 33.5 % (18.3-44.2); Mean Corpuscular HGB Conc 31.4 g/dl (32-36); Mean Corpuscular Hemoglobin 27.6 pg (26-34); Mean Corpuscular Volume 87.9 fl (80-100); Mean Platelet Volume 10.9 fl (7.4-10.4); Monocytes Absolute Auto 0.6 K/mm3 (0.1-0.6); Monocytes Percent Auto 8.2 % (2.6-8.5); Neutrophils Absolute Auto 3.8 K/mm3 (1.3-6.7); Neutrophils Percent Auto 55.3 % (45.5-73.1); Platelet Count Result 291 k/mm3 (150-375); Red Blood Count 5.19 M/mm3 (4.2-5.4); Red Cell Distribution Width 14.1 % (11.5-14.5); White Blood Count 6.9 K/mm3 (4.5-10.0)
[2025-01-19 18:43] LABS: Alanine Aminotransferase 26 U/L (6-35); Albumin Level 4.3 g/dL (3.5-5.1); Alkaline Phosphatase 138 U/L (38-126); Anion Gap 8 mmol/L (4-12); Aspartate Amino Transferase 29 U/L (14-36); Bilirubin,Total 0.7 mg/dL (0.2-1.3); Blood Urea Nitrogen 16 mg/dL (7-17); Carbon Dioxide 30 mmol/L (22-30); Chloride 101 mmol/L (98-107); Estimated Glomerular Filt Rate > 60; Glucose 93 mg/dL (65-110); Potassium 4.8 mmol/L (3.4-5.0); Sodium 139 mmol/L (137-145)
[2025-01-19 19:34] LABS: Hemoglobin A1C 5.6 % (<5.7)
== END 2025-01-19 12:44 | disposition home or self-care (01) ==
LOC: ANHGOSHLAB 12:44
PROVIDERS: PCP Family Medicine; Visit Provider Nurse Practitioner Family
DX: E03.9 Hypothyroidism, unspecified (principal); I10 Essential (primary) hypertension; R74.01 Elevation of levels of liver transaminase levels; R73.03 Prediabetes
CPT/HCPCS: 36415; 80053; 83036; 84443; 85025

== ENCOUNTER 2025-03-26 12:29 | Outpatient (CLI) | payer OTHER, SELFPAY ==
[2025-03-26 20:03] LABS: Vitamin D 25 Hydroxy 58.9 ng/mL
== END 2025-03-26 12:30 | disposition home or self-care (01) ==
LOC: ANHGOSHLAB 12:30
PROVIDERS: PCP Family Medicine; Visit Provider Nurse Practitioner
DX: E55.9 Vitamin D deficiency, unspecified (principal)
CPT/HCPCS: 36415; 82306

== ENCOUNTER 2025-05-16 14:00 | Outpatient (CLI) | payer OTHER, SELFPAY ==
--- NOTE | ~2025-05-16 | XR_ITS ---
XR finger 2nd RT min 2V Ordering provider: Linnette Murphy MD History: . L60.2 - Onychogryphosis . Comparison: June 11, 2010 FINDINGS: BONES: No acute fracture or dislocation. Status post amputation of the distal phalanx tuft of the sec ond right finger. JOINT SPACES: Normal. SOFT TISSUES: Normal. IMPRESSION: No acute osseous abnormality. Status post amputation of the tuft of the distal phalanx of the second right finger. Reviewed, dictated and finalized at location A. IMPRESSION: No acute osseous abnormality. Status post amputation of the tuft of the distal phalanx of the second right fi nger.
== END 2025-05-16 14:01 | disposition home or self-care (01) ==
PROVIDERS: PCP Family Medicine; Visit Provider Plastic Surgery
DX: L60.2 Onychogryphosis (principal)
CPT/HCPCS: 73140

== ENCOUNTER 2025-05-23 10:22 | Outpatient (CLI) | payer OTHER, SELFPAY ==
--- NOTE | ~2025-05-23 | DEXA_ITS ---
Bone Density Report Name: CHRISSY TEE Age: 54 Sex: Female Ethnicity: White Date of : 1970 Indication: postmenopausal; screening for osteoporosis; Referring Provider: Milad Duarte Study: Bone densitometry was performed. Exam Date: May 23, 2025 Accession number: [id number] Bone Density: Region BMD T-score Z-score Classification AP Spine(L1-L4) 0.873 -1.6 -0.5 Osteopenia Femoral Neck (Left) 0.725 -1.1 -0.1 Osteopenia Total Hip (Left) 0.928 -0.1 0.6 Normal Femoral Neck (Right) 0.717 -1.2 -0.1 Osteopenia Total Hip (Right) 0.916 -0.2 0.5 Normal Total Hip Mean 0.922 -0.2 0.6 Normal World Health Organization criteria for BMD impression classify patients as: Normal (T-score at or above -1.0), Osteopenia (T-score between -1.0 and -2.5), or Osteoporosis (T-score at or below -2.5). 10-year Fracture Risk(1): Major Osteoporotic Fracture 5.5% Hip Fracture 0.3% Reported Risk Factors: [place] (), Neck BMD=0.717, BMI=36.5 (1) FRAX(R) Version 3.08. Fracture probability calculated for an untreated patient. Fracture probability may be lower if the patient has received treatment. Clinical Information Provided by Patient: Patient maximum height was 63 Menopause Age: 50 No regular weight bearing exercise Drinks caffeinated beverages Onset of menses at age 14 Number of children 2 Missed period for more than 6 months in a row Impression: The patient has low bone mass, based on the Total Spine T-score. The patient has an estimated ten-year risk of hip fracture of 0.3% and an estimated ten-year risk of major fracture of 5.5%, based on the WHO FRAX algorithm. Discussion: BONE DENSITY IS LOW AT ONE OR MORE SKELETAL SITES. This patient's lowest T-score is low at one or more skeletal sites. It meets the World Health Organization's (WHO) criteria for ?low bone mass? (T-score between -1.0 and -2.5). The patient's 10-year risk of fracture as calculated by FRAX is less than the threshold where pharmacological therapy is recommended by the National Osteoporosis Foundation (NOF). However, all treatment decisions require clinical judgment and consideration of individual patient factors, including patient preferences, comorbidities, previous drug use, risk factors not captured in the FRAX model (e.g., frailty, falls, vitamin D deficiency, increased bone turnover, interval significant decline in bone density) and possible under or overestimation of fracture risk by FRAX. The patient should follow a healthful lifestyle (good nutrition with adequate calcium and vitamin D, and appropriate weight-bearing exercise). Follow-Up: Consider repeating this study in 2 to 3 years to reassess this patient's status, or sooner if there is some new clinical indication. Reported by: PILLO on 05/23/2025 10:50:00 AM. Reviewed, dictated and finalized at location A.
== END 2025-05-23 10:23 | disposition home or self-care (01) ==
LOC: MICIMG 10:23
PROVIDERS: PCP Family Medicine; Visit Provider Obstetrics & Gynecology Gynecology
DX: Z13.820 Encounter for screening for osteoporosis (principal); Z78.0 Asymptomatic menopausal state; M85.88 Other specified disorders of bone density and structure, other site; M85.852 Other specified disorders of bone density and structure, left thigh; M85.851 Other specified disorders of bone density and structure, right thigh
CPT/HCPCS: 77080

== ENCOUNTER 2025-07-25 19:37 | Emergency (ER) | payer OTHER, SELFPAY ==
[2025-07-25] VITALS (12 sets, daily range): BP systolic 127–159; BP diastolic 80–105; PULSE 80; RESP 20; TEMP 36.2; O2SAT 95–100
--- NOTE | ~2025-07-25 | CT_ITS ---
EXAM: CT abdomen pelvis w con - 07/25/2025 22:03 CDT History: 55 years old Female with periumbilical abd pain TECHNIQUE: Multidetector CT of the abdomen and pelvis with intravenous contrast. Coronal and sagittal reformats were also provided for review. Automatic exposure control was used for this study. CONTRAST: 100 cc of Optiray 350 was used for this study. COMPARISON: None Available. FINDINGS: VISUALIZED CHEST: Visualized lungs are clear. ABDOMEN and PELVIS: LIVER: Within normal limits. GALLBLADDER: No calcified gallstones. BILE DUCTS: No dilatation. SPLEEN: Within normal limits. PANCREAS: Within normal limits. ADRENAL GLANDS: Within normal limits. KIDNEYS and URETERS: No hydronephrosis or hydroureter. No nephroureterolithiasis. Simple cyst in the lower pole of the left kidney. URINARY BLADDER: Within normal limits. STOMACH and BOWEL: Multiple fluid-filled distended loops of small bowel, nonspecific finding and can be seen in enteritis. REPRODUCTIVE ORGANS: Within normal limits. MESENTERY/PERITONEAL CAVITY: No free fluid or pneumoperitoneum. LYMPH NODES: No abdominal or pelvic lymphadenopathy. ABDOMINAL WALL: Within normal limits. VASCULATURE: Within normal limits. MUSCULOSKELETAL: Multilevel degenerative changes of the spine. IMPRESSION: Multiple fluid-filled distended loops of small bowel, nonspecific finding and can be seen in enteritis. Reviewed, dictated and finalized at location N. IMPRESSION: Multiple fluid-filled distended loops of small bowel, nonspecific finding and c an be seen in enteritis.
[2025-07-25 20:20] LABS: BEDSIDEPREGUCG Negative (Negative)
[2025-07-25 20:25] LABS: Hematocrit 48.3 % (37.0-47.0); Hemoglobin 15.9 g/dL (12.0-15.0); Immature Granulocyte Percent A 0.2 % (0-0.5); Lymphocytes Absolute Auto 2.22 K/mm3 (0.9-3.2); Mean Corpuscular HGB Conc 32.9 g/dl (32-36); Mean Corpuscular Hemoglobin 28.1 pg (26-34); Mean Corpuscular Volume 85.3 fl (80-100); Nucleated Red Blood Cells Absolute Auto 0.000 K/mm3 (0.0-0.012); Nucleated Red Blood Cells Perc 0.0 % (0.0-0.2); Platelet Count Result 280 k/mm3 (150-375); Red Blood Count 5.66 M/mm3 (4.2-5.4); White Blood Count 8.6 K/mm3 (4.5-10.0)
[2025-07-25 20:34] LABS: Alanine Aminotransferase 32 U/L (6-35); Albumin Level 4.6 g/dL (3.5-5.1); Alkaline Phosphatase 123 U/L (38-126); Anion Gap 10 mmol/L (4-12); Aspartate Amino Transferase 38 U/L (14-36); Bilirubin,Total 0.9 mg/dL (0.2-1.3); Blood Urea Nitrogen 12 mg/dL (7-17); Calcium 10.4 mg/dL (8.4-10.2); Carbon Dioxide 26 mmol/L (22-30); Chloride 101 mmol/L (98-107); Estimated CRCL calculation 81 ml/min; Estimated Glomerular Filt Rate > 60; Glucose 100 mg/dL (65-110); Lipase 37 U/L (23-300); Potassium 3.8 mmol/L (3.4-5.0); Sodium 137 mmol/L (137-145); Total Protein 8.3 g/dL (6.3-8.2)
--- NOTE | 2025-07-25 20:54 | ED.ABDPAIN ---
HPI - Abdominal Pain General Chief Complaint: Abdominal Pain Stated Complaint: VOMITING ABDOMINAL PAIN DIZZY Time Seen by Provider: 07/25/25 20:28 History of Present Illness HPI narrative: This is a 55-year-old female with history of hypertension, vertigo who presents to the ED for abdominal pain, nausea, vomiting. Patient states for the past few days, she has been having periumbilical abdominal pain with multiple episodes of vomiting daily. She has also been having waves of dizziness and chills/hot flashes. No known sick contacts. No prior abdominal surgeries. Last normal bowel movement was earlier today. Denies fevers, chest pain, shortness of breath, rashes, changes in urination. Related Data Home Medications ?Medication ?Instructions ?Recorded ?Confirmed ?Last Taken ?Type cetirizine 10 mg tablet (Zyrtec) 10 mg PO DAILY 08/11/23 01/19/25 Unknown History metoprolol succinate 25 mg 25 mg PO DAILY 08/14/24 01/19/25 Unknown History tablet,extended release 24 hr gabapentin 300 mg capsule 300 mg PO HS PRN pain 11/02/24 01/19/25 Unknown History hydrocodone 5 mg-acetaminophen 325 2 tablet PO Q4H PRN pain 11/02/24 01/19/25 Unknown History mg tablet Allergies Allergy/AdvReac Type Severity Reaction Status Date / Time strawberry Allergy Mild Abdominal Verified 05/16/25 13:16 Pain grass pollen Allergy Unknown Asthma Verified 05/16/25 13:16 dust Allergy Unknown Unknown Uncoded 05/16/25 13:16 peanuts AdvReac Mild Abdominal Uncoded 05/16/25 13:16 Pain Review of Systems Review of Systems: Gen.: as per HPI Eyes: Denies eye pain or visual change ENT: Denies congestion Respiratory: Denies shortness of breath or cough CV: Denies chest pain or palpitations GI: As per HPI denies burning, urgency, frequency or hematuria Musculoskeletal: Denies back pain or muscle pain Neuro: Denies numbness, tingling, weakness or focal weakness Skin: Denies rash Except as documented, all other systems reviewed and negative [facility] Past Medical History Medical History Prediabetes Vesicular eczema of hands and feet Deafness in left ear GERD (gastroesophageal reflux disease) Right foot sprain Sensorineural hearing loss, unilateral, left ear, with unrestricted hearing on the contralateral side Asthma Chronic nonallergic rhinitis Hypertension BPPV (benign paroxysmal positional vertigo) Vertigo IBS (irritable bowel syndrome) Migraine Surgical History Surgical History H/O shoulder surgery Left 03/25/2023 Family History Family History Father Hypertension Heart disease Cerebrovascular accident Mother Asthma Diabetes mellitus Hypertension Depression Heart disease Sibling Asthma Hypertension Depression Heart disease Thyroid disorder Daughter Asthma Grandparent Hypertension Heart disease Cerebrovascular accident Social History Social History Social History: Caffeine-daily Smoking status: Former smoker Tobacco type: cigarettes Smoking end date: 11/22/18 Alcohol intake: never Substance use: never Substance use type: does not use Living arrangements: with family Occupation/Education: unemployed Gender identity (if verbalized by the patient): Female Spiritual care concerns: No Agree to blood products: Yes Exam Narrative: APPEARANCE: No acute distress, nontoxic, resting in bed EYES: EOMI HEENT: Normocephalic, atraumatic, OMM RESPIRATORY: No respiratory distress Clear to auscultation bilaterally with no rhonchi wheezing or rales. CARDIOVASCULAR: Regular rate and rhythm without murmurs rubs or gallops. ABDOMINAL: Soft, nontender, nondistended, no rebound or guarding MUSCULOSKELETAl: Moves all extremities. No clubbing, cyanosis or edema. NEURO: Awake and alert. Following commands, speech normal, no focal deficits SKIN:: Warm, dry. No rashes lesions or abrasions PSYCHIATRIC: Normal affect/mood, Course Vital Signs Vital signs: Vital Signs Temperature 97.2 F L 07/25/25 20:01 Pulse Rate 80 07/25/25 20:01 Respiratory Rate 20 07/25/25 20:01 Blood Pressure 159/105 H 07/25/25 20:01 Pulse Oximetry 98 07/25/25 20:01 Oxygen Delivery Room Air 07/25/25 20:01 Temperature 97.2 F L 07/25/25 20:01 Pulse Rate 80 07/25/25 20:01 Respiratory Rate 20 07/25/25 20:01 Blood Pressure 122/98 H 07/26/25 00:31 Pulse Oximetry 96 07/26/25 00:30 Oxygen Delivery Room Air 07/25/25 20:01 MDM - Abdominal Pain MDM Narrative Medical decision making narrative: 55-year-old female who presented to the ED for abdominal pain, nausea, vomiting, diarrhea. On initial evaluation, patient was in no acute distress, afebrile, hemodynamically stable. She had mild periumbilical and epigastric tenderness to palpation without rebound or guarding. CBC and CMP were without significant abnormalities. UA clear. COVID/flu/ RSV negative. CT abdomen/ pelvis was obtained and showed possible diarrheal illness. Suspect patient does have a gastroenteritis. She was given prescriptions for Zofran and educated on bland diet and good p.o. hydration. She was advised follow-up with her PCP next week for re-evaluation. Patient was agreeable to this plan. Given strict return precautions. Differential Diagnosis Differential diagnosis: Likely abdominal pain, diverticulitis, gastroenteritis, pancreatitis and other ( Electrolyte abnormality, UTI) Lab Data 07/25/25 20:12 07/25/25 20:12 Labs: Lab Results 07/25/25 07/25/25 07/25/25 Range/Units 20:12 20:16 20:50 WBC 8.6 (4.5-10.0) K/mm3 RBC 5.66 H (4.2-5.4) M/mm3 Hgb 15.9 H (12.0-15.0) g/dL Hct 48.3 H (37.0-47.0) % MCV 85.3 (80-100) fl MCH 28.1 (26-34) pg MCHC 32.9 (32-36) g/dl RDW 14.6 H (11.5-14.5) % Plt Count 280 (150-375) k/mm3 MPV 9.9 (7.4-10.4) fl Immature Gran % (Auto) 0.2 (0-0.5) % Neut % (Auto) 64.8 (45.5-73.1) % Lymph % (Auto) 25.7 (18.3-44.2) % [place] % (Auto) 8.7 H (2.6-8.5) % Eos % (Auto) 0.1 (0-4.4) % Baso % (Auto) 0.5 (0.2-1.2) % Lymph # (Auto) 2.22 (0.9-3.2) K/mm3 [place] # (Auto) 0.8 H (0.1-0.6) K/mm3 Eos # (Auto) 0.0 (0-0.3) K/mm3 Baso # (Auto) 0.0 (0.0-0.1) K/mm3 Abs Immat Gran (auto) 0.02 (0.00-0.031) K/mm3 Absolute Neuts (auto) 5.6 (1.3-6.7) K/mm3 Absolute Nucleated RBC 0.000 (0.0-0.012) K/mm3 Nucleated RBC % 0.0 (0.0-0.2) % Sodium 137 (137-145) mmol/L Potassium 3.8 (3.4-5.0) mmol/L Chloride 101 (98-107) mmol/L Carbon Dioxide 26 (22-30) mmol/L Anion Gap 10 (4-12) mmol/L BUN 12 (7-17) mg/dL Creatinine 0.76 (0.7-1.0) mg/dL Estim Creat Clear Calc 81 ml/min Estimated GFR > 60 (59 - ) Glucose 100 (65-110) mg/dL Calcium 10.4 H (8.4-10.2) mg/dL Total Bilirubin 0.9 (0.2-1.3) mg/dL AST 38 H (14-36) U/L ALT 32 (6-35) U/L Alkaline Phosphatase 123 (38-126) U/L Total Protein 8.3 H (6.3-8.2) g/dL Albumin 4.6 (3.5-5.1) g/dL Lipase 37 (23-300) U/L TSH 1.690 (0.465-4.680) uIU/mL Free T4 1.18 (0.78-2.19) ng/dL Urine Color (Yellow) Urine Appearance (Clear) Urine pH (5.0-9.0) Ur Specific [place] (1.001-1.035) Urine Protein (Negative) mg/dL Urine Glucose (UA) (Negative) mg/dL Urine Ketones (Negative) mg/dL Ur Blood (Man) (Negative) Urine Nitrate (Negative) Urine Bilirubin (Negative) Urine Urobilinogen (<2.0) mg/dL Leukocyte Esterase Rfl (Negative) MILAN/UL Urine RBC (0-2) /hpf Urine WBC (0-3) /hpf Ur Squamous Epith Cells (Few) /hpf Urine Bacteria /hpf Urine Casts POC Urine HCG, Qual Negative (Negative) Influenza A (RT-PCR) Negative (Negative) Influenza B (RT-PCR) Negative (Negative) RSV (RT-PCR) Negative (Negative) SARS-CoV-2 RNA (RT-PCR) Negative (Negative) 07/25/25 Range/Units 21:08 WBC (4.5-10.0) K/mm3 RBC (4.2-5.4) M/mm3 Hgb (12.0-15.0) g/dL Hct (37.0-47.0) % MCV (80-100) fl MCH (26-34) pg MCHC (32-36) g/dl RDW (11.5-14.5) % Plt Count (150-375) k/mm3 MPV (7.4-10.4) fl Immature Gran % (Auto) (0-0.5) % Neut % (Auto) (45.5-73.1) % Lymph % (Auto) (18.3-44.2) % [place] % (Auto) (2.6-8.5) % Eos % (Auto) (0-4.4) % Baso % (Auto) (0.2-1.2) % Lymph # (Auto) (0.9-3.2) K/mm3 [place] # (Auto) (0.1-0.6) K/mm3 Eos # (Auto) (0-0.3) K/mm3 Baso # (Auto) (0.0-0.1) K/mm3 Abs Immat Gran (auto) (0.00-0.031) K/mm3 Absolute Neuts (auto) (1.3-6.7) K/mm3 Absolute Nucleated RBC (0.0-0.012) K/mm3 Nucleated RBC % (0.0-0.2) % Sodium (137-145) mmol/L Potassium (3.4-5.0) mmol/L Chloride (98-107) mmol/L Carbon Dioxide (22-30) mmol/L Anion Gap (4-12) mmol/L BUN (7-17) mg/dL Creatinine (0.7-1.0) mg/dL Estim Creat Clear Calc ml/min Estimated GFR (59 - ) Glucose (65-110) mg/dL Calcium (8.4-10.2) mg/dL Total Bilirubin (0.2-1.3) mg/dL AST (14-36) U/L ALT (6-35) U/L Alkaline Phosphatase (38-126) U/L Total Protein (6.3-8.2) g/dL Albumin (3.5-5.1) g/dL Lipase (23-300) U/L TSH (0.465-4.680) uIU/mL Free T4 (0.78-2.19) ng/dL Urine Color Yellow (Yellow) Urine Appearance Cloudy H (Clear) Urine pH 6.0 (5.0-9.0) Ur Specific [place] 1.010 (1.001-1.035) Urine Protein Negative (Negative) mg/dL Urine Glucose (UA) Negative (Negative) mg/dL Urine Ketones Negative (Negative) mg/dL Ur Blood (Man) Negative (Negative) Urine Nitrate Negative (Negative) Urine Bilirubin Negative (Negative) Urine Urobilinogen 0.2 (<2.0) mg/dL Leukocyte Esterase Rfl Trace H (Negative) MILAN/UL Urine RBC 0-2 (0-2) /hpf Urine WBC 0-5 (0-3) /hpf Ur Squamous Epith Cells None seen (Few) /hpf Urine Bacteria None seen /hpf Urine Casts 0-2 POC Urine HCG, Qual (Negative) Influenza A (RT-PCR) (Negative) Influenza B (RT-PCR) (Negative) RSV (RT-PCR) (Negative) SARS-CoV-2 RNA (RT-PCR) (Negative) Discharge Plan Discharge Clinical Impression: Gastroenteritis Patient Disposition: Home Condition: Stable Instructions: Antibiotic Form, Gastroenteritis (ED) Additional Instructions: labs were reassuring. CT scan showed no evidence of any intra-abdominal infections or need for surgery. You likely have gastroenteritis. This is managed with supportive care. He will be given prescription for Zofran, take this as prescribed. He may take Tylenol and ibuprofen for the pain as well. Follow up with the PCP in the next week for re-evaluation. Return to the ED for any new or worsening symptoms. For pain, discomfort or temperature greater than or equal to 100.8 ?F please alternate the following 2 medications as needed. First medication- acetaminophen/Tylenol- 1000mg every 6-8 hours as needed for above indications. Second medication- ibuprofen/Motrin-600mg every 6-8 hours as needed for above indication. Patient Language: Serbian Prescriptions: New ondansetron 4 mg tablet,disintegrating 4 mg PO Q8H PRN (Reason: nausea and vomiting) Qty: 20 0RF No Action cetirizine [Zyrtec] 10 mg tablet 10 mg PO DAILY metoprolol succinate 25 mg tablet extended release 24 hr 25 mg PO DAILY diclofenac sodium 50 mg tablet,delayed release (DR/EC) 50 mg PO TID PRN (Reason: pain) Qty: 60 0RF prednisone 20 mg tablet 20 mg PO BID Qty: 10 0RF amoxicillin-pot clavulanate 875-125 mg tablet 1 tablet PO BID Qty: 20 0RF hydrocodone-acetaminophen 5-325 mg tablet 2 tablet PO Q4H PRN (Reason: pain) gabapentin 300 mg capsule 300 mg PO HS PRN (Reason: pain) sumatriptan succinate [Imitrex] 100 mg tablet See Rx Instructions PO .COMPLEX Qty: 9 3RF Rx Instructions: take 1 tab at onset of headache; if no relief, may repeat 1 tab after at least 2 hrs; max = 2 tabs/24 hrs PO meclizine 25 mg tablet 25 mg PO BID PRN (Reason: dizziness) Qty: 30 1RF esomeprazole magnesium [Nexium] 40 mg capsule,delayed release(DR/EC) 40 mg PO DAILY Qty: 90 1RF bupropion HCl 150 mg tablet extended release 24 hr See Rx Instructions .ROUTE .COMPLEX Qty: 90 1RF Dose Instruction: TAKE 1 TABLET BY MOUTH EVERY DAY IN THE MORNING Rx Instructions: TAKE 1 TABLET BY MOUTH EVERY DAY IN THE MORNING albuterol sulfate 90 mcg/actuation HFA aerosol inhaler See Rx Instructions .ROUTE .COMPLEX Qty: 6.7 2RF Dose Instruction: INHALE 1 PUFF BY MOUTH EVERY 4 HOURS NEEDED FOR SHORTNESS OF BREATH OR WHEEZING Rx Instructions: INHALE 1 PUFF BY MOUTH EVERY 4 HOURS NEEDED FOR SHORTNESS OF BREATH OR WHEEZING triamcinolone acetonide 0.1 % cream 1 applic topical TID PRN (Reason: poison heri) Qty: 30 0RF Follow-up/Referrals: Milad Duarte MD [Primary Care Provider, Family Practice]
[2025-07-25] MEDS: ONDANSETRON INJ 4 MG/2 ML VIAL IV PUSH (21:07)
[2025-07-25] MEDS: KETOROLAC 30 MG/ML VIAL (*BKC) IV PUSH (21:07)
[2025-07-25 21:30] LABS: Influenza A QL RT-PCR Negative (Negative); Influenza B QL RT-PCR Negative (Negative); RSV RNA, RT-PCR Negative (Negative); SARS-CoV-2 RNA PCR Negative (Negative)
[2025-07-25 21:32] LABS: Add Urine Microscopic? YES; Appearance Urine Cloudy (Clear); Glucose Urine UA Negative (Negative); Leukocyte Esterase Ur Trace LEU/UL (Negative); Nitrate Urine Negative (Negative); Non Pathogenic Casts 0-2; Specific Grav Ur 1.010 (1.001-1.035)
[2025-07-25 21:41] LABS: Free T4 Free Thyroxine 1.18 ng/dL (0.78-2.19)
[2025-07-25 21:53] LABS: Thyroid Stimulating Hormone 1.690 uIU/mL (0.465-4.680)
[2025-07-26] VITALS: O2SAT 97
[2025-07-26 00:01] VITALS: BP 132/94; O2SAT 97
[2025-07-26 00:16] VITALS: O2SAT 96
[2025-07-26 00:30] VITALS: O2SAT 96
[2025-07-26 00:31] VITALS: BP 122/98
== END 2025-07-26 00:51 | disposition home or self-care (01) ==
PROVIDERS: Physician Assistant; Emergency Provider Student in an Organized Health Care Education/Training Program; PCP Family Medicine
DX: K52.9 Noninfective gastroenteritis and colitis, unspecified (principal); Z20.822 Contact with and (suspected) exposure to COVID-19; I10 Essential (primary) hypertension; J45.909 Unspecified asthma, uncomplicated; R73.03 Prediabetes; K21.9 Gastro-esophageal reflux disease without esophagitis; K58.9 Irritable bowel syndrome, unspecified; Z87.891 Personal history of nicotine dependence
CPT/HCPCS: 36415; 74177; 80053; 81001; 81025; 83690; 84439; 84443; 85025; 87637; 96374; 96375; 99284; J1885; J2405; Q9967

== ENCOUNTER 2025-08-20 10:20 | Outpatient (CLI) | payer OTHER, SELFPAY ==
--- OUTSIDE RECORDS SUMMARY | 2025-08-20 10:58 | XMS_ITS | Clinical Summary ---
Author Organization [facility] [address] [facility] Address [address] [facility] [address] Care Team Providers Care Corner Bead Operator Name Role Phone Garo Townsend MD Unavailable Jinny Duarte MD Primary Care Provider Rossy Bella Unavailable [phone] Allergies No known active allergies Medications meclizine (ANTIVERT) 25 mg tablet Take 1 tablet (25 mg total) by mouth 3 (three) times a day as needed for dizziness 90 tablet 1 9 Active clotrimazole-b etamethasone (LOTRISONE) cream Apply 1 Application topically nightly 0 Active albuterol HFA (ProAir HFA) 90 mcg/actuation inhaler Inhale 2 puffs every 4 (four) hours as needed for wheezing or shortness of breath 8.5 g 5 1 Active gabapentin (NEURONTIN) 300 mg capsule Take 1 capsule (300 mg total) by mouth nightly 90 capsule 1 2 Active fluticasone propionate (FLONASE) 50 mcg/actuation nasal spray Administer 2 sprays into each nostril daily 3 Active mupirocin 2 % ointment kit Apply topically as needed Mixed w/ triamcinolone Active SUMAtriptan (IMITREX) 100 mg tablet Take 1 tablet (100 mg total) by mouth once as needed for migraine Active cetirizine (ZyrTEC) 10 mg tablet Take 1 tablet (10 mg total) by mouth daily Active esomeprazole DR (NexIUM) 40 mg capsule Take 1 capsule (40 mg total) by mouth daily 4 Active triamcinolone (KENALOG) 0.5 % cream Apply topically as needed 4 Active naloxone (NARCAN) 4 mg/actuation spray,non-aero sakina Administer 1 spray into affected nostril(s) as needed for opioid reversal or respiratory depression Call 911. Administer a single spray in one nostril. Repeat every 3 minutes as needed if no or minimal response. 1 each 4 Active Additional Information Patient not taking.Reported on 06/06/2025 HYDROcodone-ac etaminophen (NORCO) 5-325 mg per tabletIndicati ons:Pain Take 2 tablets by mouth every 4 (four) hours as needed for pain 40 tablet 4 Active baclofen (LIORESAL) 10 mg tablet TAKE 1 TABLET (10 MG) ORALLY TWICE A DAY 5 Active predniSONE (DELTASONE) 20 mg tablet TAKE 2 TABLETS BY MOUTH DAILY FOR 5 DAYS 5 Active buPROPion SR (WELLBUTRIN SR) 150 mg 12 hr tablet Take 1 tablet (150 mg total) by mouth 2 (two) times a day Active metoprolol XL (TOPROL-XL) 25 mg extended release tablet Take 1 tablet (25 mg total) by mouth daily 90 tablet 3 5 03/13/20 26 Active Active Problems Problem Noted Date Diagnosed Date Rotator cuff syndrome of right shoulder 07/27/20 24 Tinnitus of left ear 06/17/2023 Easy bruising 05/27/2023 Vertigo 05/27/2023 Assessment & Plan (05/27/2023 10:45 AM CDT): Patient has positional vertigo especially in hot environments. She thinks she is disabled from working because of this. She said that is why she was fired from last job at [employer]. She brings in extensive paperwork regarding this today. Previously have not evaluated her for dizziness or treated her for dizziness. She mentioned when she was 1st seen in 2019 that she had been diagnosed with Meniere's disease. She has 30% hearing loss but but hearing loss is not associated with dizzy spells Class 2 severe obesity due t o excess calories with serious comorbidity and body mass index (BMI) of 37.0 to 37.9 in adult 05/23/2023 Assessment & Plan (05/23/2023 4:23 PM CDT): BMI Follow-up includes: nutrition counseling and exercise counseling. Incomplete tear of left rotator cuff 02/23/2023 Overview (02/23/2023): Added automatically from request for surgery [id number] Neck pain 03/26/2022 Assessment & Plan (03/26/2022 11:31 AM CDT): This is not anterior neck and not posterior neck in seems more muscular tied in with her bilateral shoulder pain and she has excellent mobility in the neck Nail deformity 03/26/2022 Assessment & Plan (03/26/2022 11:31 AM CDT): Nail deformity at times painful and will refer to Dermatology History of elevated glucose 02/25/2022 Assessment & Plan (02/25/2022 10:16 AM CDT): Patient with most recent glucose normal. Patient was encouraged to decrease the sugar and starch in diet. This means avoiding juices and sugar sweetened drinks. Patient should limit REFINED carbohydrates such as bread, rice, cereal pasta, and mashed potatoes. Regular exercise for more than 30 minutes t most days was encouraged to further improve blood sugar. The main fruit to avoid are grapes , pineapple, and bananas. Encouraged to maintain vegetables. Mild intermittent asthma without complication Assessment & Plan (05/23/2023 4:21 PM CDT): Infrequent need for rescue inhaler and no nocturnal symptoms Assessment & Plan (08/25/2022 11:29 AM CDT): Infrequent use of rescue inhaler no nocturnal symptoms. Assessment & Plan (02/25/2022 10:19 AM CDT): Infrequent use of rescue inhaler no nocturnal symptoms. Major depression in remission 11/19/2021 Assessment & Plan (05/23/2023 4:21 PM CDT): Off Lexapro Assessment & Plan (08/25/2022 11:29 AM CDT): Continue Lexapro at same dosage. Well controlled. Assessment & Plan (02/25/2022 10:16 AM CDT): Continue Lexapro at same dosage. Well controlled. Assessment & Plan (01/16/2022 12:57 PM AUTOMATIC SPINNING LATHE SETTER): Continue Lexapro at same dosage. Well controlled. Assessment & Plan (11/19/2021 11:29 AM AUTOMATIC SPINNING LATHE SETTER): Continue Lexapro at same dosage. Well controlled. Mild intermittent asthma with exacerbation 11/19 Assessment & Plan (11/19/2021 1:31 PM AUTOMATIC SPINNING LATHE SETTER): Treat with amoxicillin, short course of steroids, and albuterol inhaler Hives 05/19/2021 Assessment & Plan (05/19/2021 10:52 AM CDT): Occurs only in the ankles and only when cutting grass. This is probably an allergic reaction to the grass or something that is in the grass such as some thing apply to the grass. She does wear socks which are also covered by boots though she is told this can go through clothing with allergic sensitivity. 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 Continue Lexapro at same dosage. Well controlled. Assessment & Plan (12/23/2020 10:05 AM AUTOMATIC SPINNING LATHE SETTER): Start on Lexapro and re-evaluate 1 month Short MO-normal QRS complex syndrome 12/20/2020 Assessment & Plan (12/20/2020 8:42 AM AUTOMATIC SPINNING LATHE SETTER): Continue metoprolol. Has had normal echo and stress test. Foot pain, bilateral 07/25/2020 Assessment & Plan (07/25/2020 11:26 AM CDT): This may be some degree of tarsal tunnel but will refer to Podiatry for opinion. Itching 07/25/2020 Assessment & Plan (07/25/2020 11:27 AM CDT): Will try triamcinolone cream for itching feet associated with the discomfort in the feet. Decreased pedal pulses 07/25/2020 Assessment & Plan (07/25/2020 11:29 AM CDT): Will get circulation study with also some did handed rib or top of feet and does give this to bottom of the with dependency in Lower extremity edema 07/24/2020 Assessment & Plan (07/25/2020 11:26 AM CDT): As this is more the feet than the lower legs and there is some dusky color to the lower feet 1 dependent with some decreased pulses. We need to get and circulation study. Hypertension, essential 07/24/2020 Assessment & Plan (05/23/2023 4:17 PM CDT): Continue amlodipine at same dosage. Well controlled. Assessment & Plan (08/25/2022 11:27 AM CDT): Continue amlodipine at same dosage. Well controlled. Assessment & Plan (02/25/2022 10:12 AM CDT): Continue amlodipine/metoprolol at same dosage. Well controlled. Assessment & Plan (01/16/2022 12:54 PM AUTOMATIC SPINNING LATHE SETTER): Continue amlodipine/metoprolol at same dosage. Well controlled. Assessment & Plan (11/19/2021 11:28 AM AUTOMATIC SPINNING LATHE SETTER): Continue amlodipine/metoprolol at same dosage. Well controlled. Assessment & Plan (05/18/2021 3:23 PM CDT): Continue amlodipine /metoprolol at same dosage. Well controlled. Assessment & Plan (12/20/2020 8:32 AM AUTOMATIC SPINNING LATHE SETTER): Continue amlodipine and metoprolol at same dosage. Well controlled. Assessment & Plan (07/25/2020 11:27 AM CDT): Continue medication at same dosage. Well controlled. I do not think that lower extremity edema is related to the amlodipine Acute intractable tension-type headache 06/17/20 Assessment & Plan (06/17/2020 2:42 PM CDT): It is difficult to tell if the headache is causing the elevated blood pressure of the elevated blush pressure is causing the headache. The headaches sound somewhat migrainous in nature likely to be triggered by the elevated blood pressure. He does have history of migraines. Abnormal EKG 06/17/2020 Assessment & Plan (06/21/2020 3:05 PM CDT): Referred to Cardiology for short p.r. syndrome Assessment & Plan (06/17/2020 2:51 PM CDT): Short p.r. interval of 0.118-normal rhythm with rate 88. No signs of ischemia. Will refer to Cardiology for opinion. Sinus pain 05/31/2020 Assessment & Plan (05/31/2020 1:47 PM CDT): This is probably related to allergies and there is no sign of infection today. Flonase. Mixed hyperlipidemia 05/31/2020 Assessment & Plan (05/23/2023 4:20 PM CDT): Was taking atorvastatin. Lipids done in January were good. Assessment & Plan (08/25/2022 11:27 AM CDT): Continue atorvastatin at same dosage. Well controlled. Assessment & Plan (02/25/2022 10:14 AM CDT): Improved. Continue atorvastatin at same dosage. Well controlled. Assessment & Plan (01/16/2022 12:55 PM AUTOMATIC SPINNING LATHE SETTER): Continue atorvastatin at same dosage. Well controlled. Assessment & Plan (11/19/2021 11:30 AM AUTOMATIC SPINNING LATHE SETTER): Continue atorvastatin at same dosage. Well controlled. Assessment & Plan (05/18/2021 3:33 PM CDT): Needs repeat lipids. Recommend consider statin. Assessment & Plan (12/20/2020 8:43 AM AUTOMATIC SPINNING LATHE SETTER): Adequate control with dietary management Assessment & Plan (07/24/2020 2:37 PM CDT): Triglycerides improved. Discussed that elevated triglycerides at best treated by diet. Encourage ever to keep weight down and decrease fat and starches and diet other than vegetables. Less bread, rice, cereal, and other refined carbohydrates. Assessment & Plan (06/17/2020 2:13 PM CDT): Needs repeat labs. Discussed that elevated triglycerides at best treated by diet. Encourage ever to keep weight down and decrease fat and starches and diet other than vegetables. Less bread, rice, cereal, and other refined carbohydrates. Assessment & Plan (05/31/2020 1:46 PM CDT): Dietary management/needs repeat labs/family history of heart disease Elevated glucose 05/31/2020 Assessment & Plan (12/20/2020 8:42 AM AUTOMATIC SPINNING LATHE SETTER): Needs repeat labs. Patient was encouraged to decrease the sugar and starch in diet. This means avoiding juices and sugar sweetened drinks. Patient should limit REFINED carbohydrates such as bread, rice, cereal pasta, and mashed potatoes. Regular exercise for more than 30 minutes t most days was encouraged to further improve blood sugar. The main fruit to avoid are grapes , pineapple, and bananas. Encouraged to maintain vegetables. Assessment & Plan (07/24/2020 2:37 PM CDT): The glucose is higher and recommend consider metformin. Patient was encouraged to decrease the sugar and starch in diet. This means avoiding juices and sugar sweetened drinks. Patient should limit REFINED carbohydrates such as bread, rice, cereal pasta, and mashed potatoes. Regular exercise for more than 30 minutes t most days was encouraged to further improve blood sugar. The main fruit to avoid are grapes , pineapple, and bananas. Encouraged to maintain vegetables. Assessment & Plan (06/17/2020 2:13 PM CDT): Needs repeat labs. Patient was encouraged to decrease the sugar and starch in diet. This means avoiding juices and sugar sweetened drinks. Patient should limit REFINED carbohydrates such as bread, rice, cereal pasta, and mashed potatoes. Regular exercise for more than 30 minutes t most days was encouraged to further improve blood sugar. The main fruit to avoid are grapes , pineapple, and bananas. Encouraged to maintain vegetables. Assessment & Plan (05/31/2020 1:44 PM CDT): Repeat labs--Patient was encouraged to decrease the sugar and starch in diet. This means avoiding juices and sugar sweetened drinks. Patient should limit REFINED carbohydrates such as bread, rice, cereal pasta, and mashed potatoes. Regular exercise for more than 30 minutes t most days was encouraged to further improve blood sugar. The main fruit to avoid are grapes , pineapple, and bananas. Encouraged to maintain vegetables. Rash 05/30/2020 Assessment & Plan (01/16/2022 2:02 PM AUTOMATIC SPINNING LATHE SETTER): Seems to be allergic or contact dermatitis in character. Will try triamcinolone cream maximum 2 weeks without drug holiday because of risk of atrophy and tolerance. If not better refer to Dermatology Assessment & Plan (05/31/2020 1:48 PM CDT): Rashes likely poison heri-will give short course of oral steroids-caution risk of oral steroids especially risk of aggravating blood sugar problems as she has had a slightly elevated blood sugar in the past. Seasonal allergic rhinitis due to pollen 020 Assessment & Plan (01/16/2022 12:57 PM AUTOMATIC SPINNING LATHE SETTER): Continue Gail at same dosage. Well controlled. Assessment & Plan (05/18/2021 3:33 PM CDT): Continue Gail at same dosage. Well controlled. Assessment & Plan (12/20/2020 8:43 AM AUTOMATIC SPINNING LATHE SETTER): Continue medication at same dosage. Well controlled. Assessment & Plan (05/30/2020 3:25 PM CDT): Continue medication at same dosage. Well controlled. 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 Gastroesophageal reflux disease without esophagi tis 05/30/2020 Assessment & Plan (02/25/2022 10:17 AM CDT): Continue esomeprazole at same dosage. Well controlled. Assessment & Plan (01/16/2022 12:58 PM AUTOMATIC SPINNING LATHE SETTER): Unable to taper the omeprazole. Assessment & Plan (11/19/2021 11:29 AM AUTOMATIC SPINNING LATHE SETTER): Unable to taper the Nexium. No alarm symptoms Assessment & Plan (05/30/2020 3:27 PM CDT): Unable to taper the omeprazole.. Patient is advised to PPIs can cause several medical problems. This includes making it hard to absorb minerals especially calcium which may cause bone loss. PPIs have also been associated with kidney problems and Alzheimer's disease. Use sparingly. Chronic right shoulder pain 08/23/2019 Assessment & Plan (03/26/2022 11:35 AM CDT): Worsening of right shoulder pain and now also pain in the left shoulder. We will get x-rays. We will change meloxicam to Voltaren 75 mg b.i.d. and we will refer to orthopedics tender bicipital tendon insertions bilateral suggestive of tendinitis and may benefit from steroid injection Assessment & Plan (02/26/2022 11:37 AM CDT): Worsening of chronic right shoulder pain x2 months. Currently not on NSAID. No imaging studies of the shoulder. Recommend meloxicam 15 mg daily along with getting to x-rays of the shoulder. X-rays declined but will try meloxicam. She has been going to chiropractor who did recently did an x-ray which was normal. She has seen a chiropractor not for the shoulder but for her back and neck. Exam is suggestive of bicipital tendinitis. Activity modification recommended. Start on meloxicam 15 mg daily. It is not better may need referral for steroid injection Assessment & Plan (12/23/2020 10:04 AM AUTOMATIC SPINNING LATHE SETTER): I am not sure whether this is really coming from her shoulder or may be part of her carpal tunnel syndrome/she has good motion in the shoulder but there is some tenderness over the bicipital tendon insertion. Endolymphatic hydrops of left ear 09/26/2018 Sensorineural hearing loss ( SNHL) of left ear with unrestricted hearing of right ear 09/26/2018 Migraine without aura and wi thout status migrainosus, not intractable 09/15/2018 Assessment & Plan (05/18/2021 3:33 PM CDT): No change in character, frequency, or severity. Imitrex occasionally Assessment & Plan (06/24/2020 1:01 PM CDT): Improved. Does not require additional medication. Assessment & Plan (05/31/2020 1:46 PM CDT): Headaches very infrequent Sensorineural hearing loss (SNHL) of left ear Meniere's disease of both ears 09/15/2018 Assessment & Plan (05/31/2020 1:45 PM CDT): Infrequent use of Antivert Obesity (BMI 30-39.9) 09/15/2018 Assessment & Plan (08/25/2022 11:30 AM CDT): BMI Follow-up includes: nutrition counseling and exercise counseling. Assessment & Plan (05/18/2021 3:34 PM CDT): BMI Follow-up includes: nutrition counseling and exercise counseling. Assessment & Plan (12/20/2020 8:44 AM AUTOMATIC SPINNING LATHE SETTER): BMI Follow-up includes: nutrition counseling and exercise counseling. Assessment & Plan (05/30/2020 3:28 PM CDT): Patient was advised to lose weight. Discussed 1/2 to 1 lb per week as a good goal. Discussed that reducing weight by 500 calories per day should result in weight loss of about a lb per week. Encouraged efforts to maintain adequate protein of more than 60 g per day. Encouraged reducing refined starches and diet especially bread, rice, pasta, and cereal. Avoid juices and sugared drinks. Discussed that 5-10% weight loss can lead to improvement in health outcomes for weight related conditions. Discussed behavioral measures. Recommended regular weight monitoring as well as some moderate with a food diary. BMI Follow-up includes: nutrition counseling and exercise counseling. Assessment & Plan (08/22/2019 1:02 PM CDT): Patient was advised to lose weight. Discussed 1/2 to 1 lb per week as a good goal. Discussed that reducing weight by 500 calories per day should result in weight loss of about a lb per week. Encouraged efforts to maintain adequate protein of more than 60 g per day. Encouraged reducing refined starches and diet especially bread, rice, pasta, and cereal. Avoid juices and sugared drinks. Discussed that 5-10% weight loss can lead to improvement in health outcomes for weight related conditions. Discussed behavioral measures. Recommended regular weight monitoring as well as some moderate with a food diary.BMI Follow-up includes: nutrition counseling and exercise counseling. Cellulitis of left arm 09/15/2018 Other obesity due to excess calories 09/15/2018 Resolved Problems Problem Noted Date Diagnosed Date Resolved Date Right wrist pain 12/23/2020 01/16/2022 Assessment & Plan (12/23/2020 10:04 AM AUTOMATIC SPINNING LATHE SETTER): This is her dominant pain and she has positive Phalen's test on the left side. Not responding to several weeks of splint. Will refer to hand surgeon. Check TSH Elevated blood pressure reading 06/17/2020 12/20/2020 Assessment & Plan (06/24/2020 1:00 PM CDT): Improved. Continue medication at same dosage. Well controlled. Assessment & Plan (06/17/2020 2:42 PM CDT): Start her on amlodipine 10 mg once a day . Because of the degree of elevation of blood pressure and the fact that digit of symptomatic with headaches along with her family history we should do an EKG today. Cough 02/05/2020 01/16/2022 Assessment & Plan (11/19/2021 1:32 PM AUTOMATIC SPINNING LATHE SETTER): Probably due to combination of sinusitis, bronchitis, and asthma exacerbation. Will treat with albuterol, amoxicillin, and short course of oral steroids Assessment & Plan (02/05/2020 2:50 PM CDT): Mostly probably due to sinus infection but could be some triggering of underline asthma she had when she was younger. Shortness of breath 02/05/2020 05/30/20 20 Assessment & Plan (02/05/2020 2:50 PM CDT): Oxygen level remains good and I would rather try and avoid given any steroids at this time. Bilateral chronic serous otitis media 02/05/2020 05/30/2020 Assessment & Plan (02/05/2020 2:50 PM CDT): May also be some degree of eustachian tube dysfunction. Acute non-recurrent maxillary sinusitis 11/24/2019 01/16/2022 Assessment & Plan (11/19/2021 1:30 PM AUTOMATIC SPINNING LATHE SETTER): Treat with amoxicillin Assessment & Plan (03/12/2020 3:01 PM CDT): Treat with amoxicillin. Follow-up if not better 3 days. Assessment & Plan (02/05/2020 2:50 PM CDT): Treat with amoxicillin x2 weeks. Assessment & Plan (11/24/2019 6:49 AM AUTOMATIC SPINNING LATHE SETTER): Cefzil and Medrol Dosepak as directed. Tessalon Perles TID PRN for cough. Instructed to increase clear liquids, rest, and vitamin C in diet. Advised follow-up with PCP if symptoms worsen, don't resolve, or new symptoms develop. Encounters Date Type Department Care Team Description 08/03/2025 Telephone [facility] [address] [place] [address] [address] [place] [address] Chalo Cuadra MD Cancel 2nd No Show Letter ORTHO 06/06/2025 2:45 PM CDT Office Visit [facility] [address] [place] [address] [address] [place] [address] Chalo Cuadra MD Rotator cuff tendinitis, right (Primary Dx); Primary osteoarthritis of right knee from Last 3 Months Immunizations Immunization Administration Dates Next Due Influenza, Quadrivalent, Rec ombinant, Egg Free, Preservative Free, Intramuscular 09/15/2018 Influenza, Quadrivalent, Spl it, Preservative Free, Intramuscular 08/23/2019 Influenza, Unspecified 09/15/2022(Deferr ed: Patient Refused),08/22/2022 Jonelle (J&J) SARS-CoV-2 Vaccination 03/03/2021 ZOSTER Recombinant 05/26/2023,07/02/2022 Surgical History Surgery Date Site/Laterality Comments MOLE REMOVAL left abdomen COLONOSCOPY 2019 ROTATOR CUFF REPAIR 03/25/2023 Left ROTATOR CUFF REPAIR 09/14/2024 Right Medical History Medical History Date Comments GERD (gastroesophageal reflux disease) Migraine without aura and wi thout status migrainosus, not intractable under control for past 3 years Meniere's disease (cochlear hydrops), bilateral Sensorineural hearing loss of left ear Endolymphatic hydrops of left ear Neuropathy Hypertension Hyperlipidemia Asthma Heart beat abnormality used to see Dr. Garcia, but he left, 1st saw him for a fluttery heart beat and chest pain, hasn't happened for about 3 years Depression 2020 Obesity Last menstrual period (LMP) > 10 days ago LMP about 1 year ago SOB (shortness of breath) on exertion at times Allergic rhinitis Wears glasses History of gastric ulcer Torn rotator cuff Chronic back pain sees chiroprac tor IBS (irritable bowel syndrome) Dizziness Borderline diabetic Thyroid nodule Family History Medical History Relation Name Comments Cancer Father Myke Sanchez Heart disease Father Myke Sanchez Hyperlipidemia Father yMke Sanchez Hypertension Father Myke Sanchez Stroke Father Myke Sanchez Diabetes Mother Judith Sanchez Heart disease Mother Judith Sanchez Hyperlipidemia Mother Judith Sanchez Heart disease Paternal Grandfather Myke Sanchez Sr Heart disease Paternal Grandmother Cancer Sister 1 Heart disease Sister 1 Pancreatic cancer Sister 1 Thyroid disease Sister 2 No Known Problems Sister 3 Hypertension Sister 4 Darren Hutchinson Relation Name Status Comments Father Myke Sanchez Maternal Grandfather Maternal Grandmother Mother Judith Sanchez Alive Paternal Grandfather Myke Sanchez Sr Paternal Grandmother Sister 1 Alive Sister 2 Alive Sister 3 Alive Sister 4 Darren Hutchinson Social History Tobacco Use Types Packs/Day Years Used Date Smoking Tobacco: Former Cigarettes 1 21 0 11/22/1994 - 11/22/2015 Passive Smoke Exposure: Past Smokeless Tobacco: Never Tobacco Cessation:Counseling Given: Not Answered Alcohol Use Standard Drinks/Week Comments Yes 0 (1 standard drink = 0.6 oz pur e alcohol) rarely AUDIT-C Answer Date Recorded Q1: How often do you have a drink containing alcohol? Never 09/14/2024 Q2: How many drinks containi ng alcohol do you have on a typical day when you are drinking? Patient does not drink Q3: How often do you have si x or more drinks on one occasion? Never 09/14/2024 PHQ-2 Answer Date Recorded PHQ-2 Total Score (If total score is 3 or more points, staff should administer the PHQ-9) 2 05/27/2023 Personal Safety Answer Date Recorded Have you ever been in or are you currently in a harmful physical or emotional relationship or is someone making you feel afraid or unsafe? 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 Gender Identity Female 08/07/2020 12:06 PM CDT Sexual Orientation Straight 08/07/2020 12 :06 PM CDT Obstetrics History Last Filed Vital Signs Vital Sign Reading Time Taken Comments Blood Pressure 122/90 03/13/2025 9:29 AM CDT Pulse 78 03/13/2025 9:29 AM CDT Temperature 36.5 C (97.7 F) 09/14/2024 2:25 PM CDT Respiratory Rate 18 09/14/2024 2:55 PM CDT Oxygen Saturation 99% 03/13/2025 9:29 AM CDT Inhaled Oxygen Concentration - - Weight 95.7 kg (211 lb) 06/06/2025 2:32 PM CDT Height 160 cm (5' 3) 06/06/2025 2:32 PM CDT Body Mass Index 37.38 06/06/2025 2:32 PM CDT Plan of Treatment Health Maintenance Due Date Last Done Comments Cervical Cancer Screening 1970 Colon Cancer Screening-Colonoscopy 1970 Hepatitis C Screening 1970 DTaP/Tdap/Td Vaccine (1 - Tdap) 1981 Hepatitis B Screening 1988 Regular Well Visit/Exam 18-64 1988 Pneumococcal vaccine <65 (1 of 2 - PCV) 1989 Breast Cancer Screening-Mammogram 02/07/2020 019 Lung Cancer Screening 2020 Depression Screening 05/27/2024 05/27/2023, 08/26/2022, 03/26/2022, Additional history exists Covid-19 Vaccine (2 - 2024-2 6 season) 2025 03/03/2021 Influenza Vaccine (#1) 2025 2, 08/23/2019, 09/15/2018 Zoster Vaccine Completed 05/26/2023, 07/02/2022 Medical Devices Implanted Type Area Electronic Game Developer Device Identifier Shelf Expiration Date Model / Serial / Lot [employer] Corkscrew Suturetape 5.5mm 14.7mm Bioabsorbable Full Thread 1.3mm [id number] - [id number] Implanted:Qty: 1 on 09/14/2024 by Chalo Cuadra MD at [facility] Right: Shoulder [employer] Inc [id number] 03/21/2025 AR-1927BC T / / [id number] [employer] Corkscrew Ii Fiberwire 5.5mm 15mm 2 Full Thread [place] Suture Ar-1928sf - [id number] Implanted:Qty: 1 on 03/25/2023 by Chalo Cuadra MD at [facility] [employer] [id number] 09/21/2027 AR-1928SF / / [id number] Procedures Procedure Name Priority Date/Time Associated Diagnosis Comments [place] ARTHROCENTESIS ASPIR&/INJ MAJOR JT/BURSA W/O US Routine 06/06/2025 2:45 PM CDT Rotator cuff tendinitis, right MAMMOGRAPHY Routine 02/06/2019 from Last 3 Months or Most Recently Relevant to Health Maintenance Results * [place] ARTHROCENTESIS ASPIR&/INJ MAJOR JT/BURSA W/O US (06/06/2025 2:45 PM CDT) Narrative Chalo Cuadra MD - 06/06/2025 2:45 PM CDT Chalo Cuadra MD 06/07/2025 8:14 AM Large Joint (Hip, Knee, Shoulder) Injection: R subacromial bursa Performed by: Chalo Cuadra MD Authorized by: Chalo Cuadra MD Large Joint Injection/Aspiration: Consent Given by: Patient Site marked: the procedure site was marked Timeout: prior to procedure the correct patient, procedure, and site was verified Verbal consent obtained: Yes Written consent obtained: No Supporting Documentation: Indications: Pain Procedure Details: Location: Shoulder Site: R subacromial bursa Prep: patient was prepped using a clean technique Needle Size: 22 G Ultrasound guided: No Medications: 1 mL lidocaine 10 mg/mL (1 %); 40 mg methylPREDNISolone acetate 40 mg/mL Patient tolerance: Patient tolerated the procedure well with no immediate complications Chalo Cuadra MD IN CLINIC/BEDSIDE [facility] Final Result * MAMMOGRAPHY (02/06/2019) Mammogram Normal Historical Provider HEALTH MAINTENANCE Final Result from Last 3 Months or Most Recently Relevant to Health Maintenance [place] [id number] [place] [id number] [place] [id number] Care Teams Corner Bead Operator Relationship Specialty Start Date End Date Jinny Duarte MD [address] [facility] [address] [address] PCP - General Family Practice 08/30/24 Garo Townsend MD [address] [place] [address] Consulting Physician Cardiology 07/27/24 Rossy Bella PA [address] [place] [address] Physician Manager Hiv Orthopedic Surgery 09/14/24
--- OUTSIDE RECORDS SUMMARY | 2025-08-20 10:58 | XMS_ITS | Encounter Summary ---
Author Organization [facility] Facility Care Team Providers Care Masonry Installer Name Role Phone Suman Houser MD Primary Care Provider + [phone] Garo Townsend MD Unavailable + [phone] Jinny Duarte MD Primary Care Provider Rossy Bella Unavailable [phone] Encounter Details Date Type Department Care Team (Latest Contact Info) Description 09/26/2018 Orders Only [facility] CLINCONV ProviderGalileo MD [address] [place] [id number] Social History Tobacco Use Types Packs/Day Years Used Date Smoking Tobacco: Never Assessed Comments Unknown Sex and Gender Information Value Date Recorded Sex Assigned at Not on file 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 us Historical Provider NURSING COMMUNICATION Fin al Result documented in this encounter Visit Diagnoses Not on filedocumented in this encounter Care Teams Masonry Installer Relationship Specialty Start Date End Date Suman Houser MD PCP - General Family Practice 08/21/19 08/29/24 Jinny Duarte MD [address] [facility] [address] [place] [address] PCP - General Family Practice 08/30/24 Garo Townsend MD [address] [place] [address] [address] Consulting Physician Cardiology 07/27/24 Rossy Bella PA [address] [place] [address] [place] [address] Physician Dry Sander Orthopedic Surgery 09/14/24 documented as of this encounter
[2025-08-20 13:07] LABS: Alanine Aminotransferase 29 U/L (6-35); Albumin Level 4.5 g/dL (3.5-5.1); Alkaline Phosphatase 100 U/L (38-126); Anion Gap 7 mmol/L (4-12); Aspartate Amino Transferase 39 U/L (14-36); Bilirubin,Total 0.7 mg/dL (0.2-1.3); Blood Urea Nitrogen 11 mg/dL (7-17); Calcium 9.9 mg/dL (8.4-10.2); Carbon Dioxide 30 mmol/L (22-30); Chloride 101 mmol/L (98-107); Cholesterol 207 mg/dL (0-200); Estimated Glomerular Filt Rate > 60; Glucose 103 mg/dL (65-110); HDL Direct 51 mg/dL; Potassium 4.1 mmol/L (3.4-5.0); Sodium 138 mmol/L (137-145); Total Protein 8.1 g/dL (6.3-8.2); Triglycerides 216 mg/dL (<150)
[2025-08-20 13:23] LABS: Hemoglobin A1C 5.6 % (<5.7)
== END 2025-08-20 10:21 | disposition home or self-care (01) ==
LOC: ANHGOSHLAB 10:21
PROVIDERS: PCP Family Medicine; Visit Provider Family Medicine
DX: E78.5 Hyperlipidemia, unspecified (principal); I10 Essential (primary) hypertension; R73.03 Prediabetes
CPT/HCPCS: 36415; 80053; 80061; 83036

== ENCOUNTER 2025-08-23 06:12 | Day surgery (SDC) | payer OTHER, SELFPAY ==
[2025-08-09 14:11] VITALS: BMI 36.1
--- NOTE | 2025-08-23 06:50 | P.HPUP_ITS ---
History and Physical Update Update Date/Time: 08/23/25 06:50 Patient seen and examined in pre-operative holding area. No interval change in medical history or symptoms. Patient recalls previous discussion of benefits and alternatives to procedure. Continues to desire to proceed with right index finger amputation revision, hook nail reconstruction and partial nail ablation . Reviewed procedure, post-op expectations and risks including but not limited to bleeding, infection, injury to tendon/nerve/vessel, decreased hand function, stiffness, RSD, no change or worsening of symptoms. I discussed the possible use of assistants and their participation in the case. Patient stated u nderstanding and signed the consent form wishing to proceed.
--- NOTE | 2025-08-23 06:51 | P.OP_ITS ---
Procedure Note - Detailed Date of Procedure 08/23/25 Pre-op Diagnosis acquired deformity right index finger Post-op Diagnosis Same Procedure Performed right index finger hook nail reconstruction and partial nail ablation Surgeon Linnette Murphy MD Accounting Systems Manager Weston Rivera PA-C Anesthesia MAC Description of Procedure INFORMED CONSENT: The patient was seen and examined and marked in the pre-op area.? The patient signed the consent form. PROCEDURE IN DETAIL:The patient taken back to OR on the stretcher in supine position. Time out performed with anesthesia, surgeon and staff agreeing on patient's name site and surgery to be performed SCDs were placed on the lower extremities and inflated. A tourniquet was placed on {right} upper extremity and antibiotics given IV After anesthesia administered sedation I injected {3}cc 1%lido and 0.5% marcaine plain for digital block in the palm The?{right upper extremity}?was prepped and draped in sterile fashion the??{right upper extremity} was? exsanguinated with Esmarch bandage and tourniquet inflated to 250mmHg I proceeded with using a 15 blade scalpel to release the proximal nail fold as well as the hyponychium. [place] elevator was used to further undermine the nail plate back to the nail fold. I made 2 incisions on the radial and ulnar aspect of the proximal nail fold extending back to the DIP joint and elevated my proximal based flap to expose the germinal matrix. I proceeded with excising the radial and ulnar ingrown portions of nail plate, germinal matrix, and sterile matrix. Bipolar cautery was used to cauterize the area of germinal matrix resection. Next I took my attention to elevating the sterile matrix at distal end off of the periosteum. I de-epithelialized a small rim of epidermis from the hyponychium skin to create an advancement flap of soft tissue to bolster and reinforced the sterile matrix and help prevent future hook nail deformity from occurring. This was sutured into place with 4-0 and 5-0 chromic suture to the remaining nail and created a buttress to help elevate distal nailplate. After irrigation the proximal incisions were closed with 4-0 chromic. The lateral nail folds were also advanced and sutured to the sterile matrix with 5-0 chromic A dressing of dermabond on the nail bed and xeroform for proximal sutures, 4x4, and tube gauze was applied after the tourniquet was let down noting the hand was warm and well perfused. The patient was then awaken from anesthesia and trans ferred to the recovery room in stable condition.? Complications - none EBL- 0cc Disposition - home in stable condition Weston Rivera PA-C was essential for positioning, retraction, closure and dressi ng placement [facility] Billing Surgery - Charge Forward: Surgery Billing ([id number] [phone] same for weston adding )
[2025-08-23 07:09] VITALS: BP 142/108; PULSE 85; RESP 18; TEMP 37; O2SAT 98
[2025-08-23 07:13] VITALS: BMI 35.5
[2025-08-23] MEDS: LACTATED RINGERS 1,000 ML 30 ML IV CONT (07:24)
[2025-08-23] MEDS: ACETAMINOPHEN 500 MG TABLET 1000 MG PO (07:24)
--- NOTE | 2025-08-23 07:29 | WPDANESEPPF ---
Anes - Initial Pre Proc Eval Procedure: Operation Date: 08/23/25 08:15 Proposed Procedures p Right Index Finger Amputation Revision, Hook Nail Reconstruction, Partial Nail Ablation - Linnette Murphy MD Date/Time: 08/23/25 07:29 Surgeon: Linnette Murphy MD Pre Op Diagnosis: Onychogryphosis Patient Data Age: 55 Gender: F Height: 1.6 m Weight: 91 kg Last Vital Signs Temp 98.6 F 08/23/25 07:09 Pulse 85 08/23/25 07:09 Resp 18 08/23/25 07:09 BP 142/108 H 08/23/25 07:09 Pulse Ox 98 08/23/25 07:09 O2 Del Method Room Air 08/23/25 07:09 Allergies Allergy/AdvReac Type Severity Reaction Status Date / Time strawberry Allergy Mild Abdominal Verified 08/23/25 06:54 Pain grass pollen Allergy Unknown Asthma Verified 08/23/25 06:54 dust Allergy Unknown Unknown Uncoded 08/20/25 08:59 peanuts AdvReac Mild Abdominal Uncoded 08/20/25 08:59 Pain Home Medications ?Medication ?Instructions ?Recorded ?Confirmed ?Type cetirizine 10 mg tablet (Zyrtec) 10 mg PO DAILY 08/11/23 08/23/25 History metoprolol succinate 25 mg 25 mg PO DAILY 08/14/24 08/23/25 History tablet,extended release 24 hr sumatriptan succinate 100 mg See Rx Instructions PO .COMPLEX #9 10/04/24 08/23/25 Rx tablet (Imitrex) tabs gabapentin 300 mg capsule 300 mg PO HS PRN pain 11/02/24 08/23/25 History diclofenac sodium 50 mg 50 mg PO TID PRN pain #60 tabs 12/08/24 08/23/25 Rx tablet,delayed release meclizine 25 mg tablet 25 mg PO BID PRN dizziness #30 tabs 01/24/25 08/23/25 Rx albuterol sulfate 90 mcg/actuation See Rx Instructions .Route 05/31/25 08/23/25 Rx aerosol inhaler .COMPLEX #6.7 ea ondansetron 4 mg disintegrating 4 mg PO Q8H PRN nausea and 07/26/25 08/23/25 Rx tablet vomiting #20 tabs esomeprazole magnesium 40 mg 40 mg PO DAILY #90 caps 07/31/25 08/23/25 Rx capsule,delayed release (Nexium) calcium 500 mg tablet 500 mg PO DAILY 08/09/25 08/23/25 History cholecalciferol (vitamin D3) 25 25 mcg PO DAILY 08/09/25 08/23/25 History mcg (1,000 unit) capsule (Vitamin D3) tgtydfxy-tmf-hana-FA-Ca carb-vit K 1 tablet PO DAILY 08/09/25 08/23/25 History 18 mg iron-400 mcg-500 mg tablet (One-A-Day Womens Formula) bupropion HCl 150 mg 24 hr tablet, 150 mg PO DAILY 08/20/25 08/23/25 History extended release paroxetine HCl 10 mg tablet 10 mg PO DAILY #90 tabs 08/20/25 08/23/25 Rx triamcinolone acetonide 0.5 % 1 applic topical BID #15 grams 08/20/25 08/23/25 Rx topical cream tramadol 50 mg tablet 50 mg PO Q6H PRN pain #12 tabs 08/23/25 Rx Patient hx anesthesia problems: none Family hx anesthesia problems: none Results Review: All pre-operative results and documents have been reviewed as part of the pre-operative evaluation. [facility] Past Medical History Medical History (Updated 08/20/25 @ 12:44 by Milad Duarte MD) Depression Prediabetes Vesicular eczema of hands and feet Deafness in left ear GERD (gastroesophageal reflux disease) Right foot sprain Sensorineural hearing loss, unilateral, left ear, with unrestricted hearing on the contralateral side Asthma Chronic nonallergic rhinitis Hypertension BPPV (benign paroxysmal positional vertigo) Vertigo IBS (irritable bowel syndrome) Migraine Surgical History Surgical History H/O shoulder surgery Left 03/25/2023 Family History Family History Father Hypertension Heart disease Cerebrovascular accident Mother Asthma Diabetes mellitus Hypertension Depression Heart disease Sibling Asthma Hypertension Depression Heart disease Thyroid disorder Daughter Asthma Grandparent Hypertension Heart disease Cerebrovascular accident Social History Social History Social History: Caffeine-daily Smoking status: Former smoker Tobacco type: cigarettes Second hand tobacco smoke exposure: Yes Smoking end date: 05/22/19 Alcohol intake: never Alcohol use details: occasional Substance use: never Substance use type: does not use Living arrangements: with family Occupation/Education: unemployed Gender identity (if verbalized by the patient): Female Spiritual care concerns: No Agree to blood products: Yes Anes - Eval Final PreProcedure Day of Procedure 08/23/25 07:29 Heart: regular rate and rhythm Lungs: clear to auscultation Airway: Mallampati scale class III Neurological: alert and oriented Last oral intake: >/= 8 hours ASA classification: III Anesthetic plan: proceed Anesthesia type and monitoring: monitored anesthesia care Results Review: All pre-operative results and documents have been reviewed as part of the pre-operative evaluation. Informed Consent: The patient's anesthetic plan and its attendant risks and benefits were discussed with the patient/family/POA. Questions were solicited and answers provided to the satisfaction of the patient/family/POA.
[2025-08-23] MEDS: ceFAZolin SODIUM 2 GM/20 ML SW SYRINGE IV PUSH (08:07)
[2025-08-23] MEDS: LIDOCAINE 1% LOCAL INJ 20 ML VIAL 10 ML INFILTRATE (08:22)
[2025-08-23] MEDS: BUPivacaine HCL 0.5% 10 ML AMP INFILTRATE (08:23)
[2025-08-23 08:42] VITALS: BP 115/81; PULSE 83; RESP 14; O2SAT 96
[2025-08-23 08:52] VITALS: BP 123/91; PULSE 74; RESP 16; O2SAT 98
[2025-08-23 09:02] VITALS: BP 114/92; PULSE 71; RESP 16; O2SAT 98
--- NOTE | 2025-08-23 09:12 | WPDANESPN ---
Anes - Prog Note Post-Op Date/Time: 08/23/25 09:12 Vital Signs: Last Vital Signs Temp 98.6 F 08/23/25 07:09 Pulse 71 08/23/25 09:02 Resp 16 08/23/25 09:02 BP 114/92 H 08/23/25 09:02 Pulse Ox 98 08/23/25 09:02 O2 Del Method Room Air 08/23/25 09:02 Pain Score (VAS): no I/O: Intake & Output 08/22/25 08/23/25 08/23/25 23:59 07:59 15:59 Intake Total 25 Balance 25 Patient Feedback: Patient satisfied with anesthetic care.
--- NOTE | 2025-08-23 09:13 | WPDANESPN ---
Anes - Prog Note Post-Op Date/Time: 08/23/25 09:13 Vital Signs: Last Vital Signs Temp 98.6 F 08/23/25 07:09 Pulse 71 08/23/25 09:02 Resp 16 08/23/25 09:02 BP 114/92 H 08/23/25 09:02 Pulse Ox 98 08/23/25 09:02 O2 Del Method Room Air 08/23/25 09:02 Pain Score (VAS): no I/O: Intake & Output 08/22/25 08/23/25 08/23/25 23:59 07:59 15:59 Intake Total 25 Balance 25 Patient Feedback: Patient satisfied with anesthetic care.
== END 2025-08-23 09:14 | disposition home or self-care (01) ==
PROVIDERS: PCP Family Medicine; Visit Provider Plastic Surgery
PROC: (CPT 11750; principal; 2025-08-23 08:15)
DX: L60.2 Onychogryphosis (principal); M79.644 Pain in right finger(s)
CPT/HCPCS: 11750; 14040

== ENCOUNTER 2025-08-23 10:40 | Outpatient (NON) | payer OTHER, SELFPAY ==
--- NOTE | 2025-08-23 | S_PTH ---
PATIENT: Chrissy Llanos [facility][id number] AGE/SX: 55/F ROOM: RE08/23/[address]: Linnette Murphy MD : 1970 BED: DIS: 08/23/2025 SPEC #: [id number] RECD: 08/24/25 10:59 STATUS: JACK REKianna #: [id number] TREVER: 08/23/25 00:[address]: Linnette Murphy DEPT: [facility] Surgical RECD BY: Ana Osorio ENTERED: 08/24/25 11:00 SP TYPE: Surgical OTHR DR: Jinny Duarte MD Tissues: A - Soft Tissue Procedures: Hematoxylin and Eosin Stain Gross and Microscopic Level 3
--- OUTSIDE RECORDS SUMMARY | 2025-08-24 10:46 | XMS_ITS | Clinical Summary ---
Author Organization [facility] [address] [facility] Address [address] [facility] [place] [address] Care Team Providers Care Telecom Manager Name Role Phone Garo Townsend MD Unavailable Jinny Duarte MD Primary Care Provider Rossy Bella Unavailable [phone] Allergies No known active allergies Medications meclizine [...] she was fired from last job at [employer]. She brings in extensive paperwork regarding this [...] (02/23/2023): Added automatically from request for surgery [id number] Neck pain 03/26/2022 Assessment & Plan (03/26/2022 [...] controlled. Assessment & Plan (01/16/2022 12:57 PM DOLPHIN TRAINER): Continue Lexapro at same dosage. Well controlled. Assessment & Plan (11/19/2021 11:29 AM DOLPHIN TRAINER): Continue Lexapro at same dosage. Well controlled. Mild intermittent asthma with exacerbation 11/19 Assessment & Plan (11/19/2021 1:31 PM DOLPHIN TRAINER): Treat with amoxicillin, short course of steroids, [...] controlled. 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 Has had normal echo and [...] controlled. Assessment & Plan (01/16/2022 12:54 PM DOLPHIN TRAINER): Continue amlodipine/metoprolol at same dosage. Well controlled. Assessment & Plan (11/19/2021 11:28 AM DOLPHIN TRAINER): Continue amlodipine/metoprolol at same dosage. Well controlled. Assessment & Plan (05/18/2021 3:23 PM CDT): Continue amlodipine /metoprolol at same dosage. Well controlled. Assessment & Plan (12/20/2020 8:32 AM DOLPHIN TRAINER): Continue amlodipine and metoprolol at same dosage. [...] controlled. Assessment & Plan (01/16/2022 12:55 PM DOLPHIN TRAINER): Continue atorvastatin at same dosage. Well controlled. Assessment & Plan (11/19/2021 11:30 AM DOLPHIN TRAINER): Continue atorvastatin at same dosage. Well controlled. Assessment & Plan (05/18/2021 3:33 PM CDT): Needs repeat lipids. Recommend consider statin. Assessment & Plan (12/20/2020 8:43 AM DOLPHIN TRAINER): Adequate control with dietary management Assessment & [...] 05/31/2020 Assessment & Plan (12/20/2020 8:42 AM DOLPHIN TRAINER): Needs repeat labs. Patient was encouraged to [...] 05/30/2020 Assessment & Plan (01/16/2022 2:02 PM DOLPHIN TRAINER): Seems to be allergic or contact dermatitis [...] 020 Assessment & Plan (01/16/2022 12:57 PM DOLPHIN TRAINER): Continue Gail at same dosage. Well controlled. Assessment & Plan (05/18/2021 3:33 PM CDT): Continue Gail at same dosage. Well controlled. Assessment & Plan (12/20/2020 8:43 AM DOLPHIN TRAINER): Continue medication at same dosage. Well controlled. Assessment & Plan (05/30/2020 3:25 PM CDT): Continue medication at same dosage. Well controlled. 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 Gastroesophageal reflux disease without esophagi tis 05/30/2020 Assessment & Plan (02/25/2022 10:17 AM CDT): Continue esomeprazole at same dosage. Well controlled. Assessment & Plan (01/16/2022 12:58 PM DOLPHIN TRAINER): Unable to taper the omeprazole. Assessment & Plan (11/19/2021 11:29 AM DOLPHIN TRAINER): Unable to taper the Nexium. No alarm [...] injection Assessment & Plan (12/23/2020 10:04 AM DOLPHIN TRAINER): I am not sure whether this is [...] counseling. Assessment & Plan (12/20/2020 8:44 AM DOLPHIN TRAINER): BMI Follow-up includes: nutrition counseling and exercise [...] 01/16/2022 Assessment & Plan (12/23/2020 10:04 AM DOLPHIN TRAINER): This is her dominant pain and she [...] 01/16/2022 Assessment & Plan (11/19/2021 1:32 PM DOLPHIN TRAINER): Probably due to combination of sinusitis, bronchitis, [...] 01/16/2022 Assessment & Plan (11/19/2021 1:30 PM DOLPHIN TRAINER): Treat with amoxicillin Assessment & Plan (03/12/2020 3:01 PM CDT): Treat with amoxicillin. Follow-up if not better 3 days. Assessment & Plan (02/05/2020 2:50 PM CDT): Treat with amoxicillin x2 weeks. Assessment & Plan (11/24/2019 6:49 AM DOLPHIN TRAINER): Cefzil and Medrol Dosepak as directed. Tessalon Perles TID PRN for cough. Instructed to increase clear liquids, rest, and vitamin C in diet. Advised follow-up with PCP if symptoms worsen, don't resolve, or new symptoms develop. Encounters Date Type Department Care Team Description 08/03/2025 Telephone [facility] [address] [place] [address] [address] [place] [address] Chalo Cuadra MD Cancel 2nd No Show Letter ORTHO 06/06/2025 2:45 PM CDT Office Visit [facility] [address] [place] [address] [address] [place] [address] Chalo Cuadra MD Rotator cuff tendinitis, right [...] Heart disease Father Myke Sanchez Hyperlipidemia Father Myke Sanchez Hypertension Father Myke Sanchez Stroke Father [...] on file Legal Sex Female 8:07 PM DOLPHIN TRAINER Gender Identity Female 08/07/2020 12:06 PM CDT [...] 05/26/2023, 07/02/2022 Medical Devices Implanted Type Area Collision Repair Technician Device Identifier Shelf Expiration Date Model / Serial / Lot [employer] Corkscrew Suturetape 5.5mm 14.7mm Bioabsorbable Full Thread 1.3mm Ar-1927bct - [id number] Implanted:Qty: 1 on 09/14/2024 by Chalo Cuadra MD at [facility] Right: Shoulder [employer] [id number] 03/21/2025 AR-1927BC T / / [id number] [employer] Corkscrew Ii Fiberwire 5.5mm 15mm 2 Full Thread [place] Suture Ar-1928sf - [id number] Implanted:Qty: 1 on 03/25/2023 by Chalo Cuadra MD at [facility] [employer] [id number] 09/21/2027 AR-1928SF / / [id number] Procedures Procedure Name Priority Date/Time Associated Diagnosis Comments [place] ARTHROCENTESIS ASPIR&/INJ MAJOR JT/BURSA W/O US Routine 06/06/2025 2:45 PM CDT Rotator cuff tendinitis, right MAMMOGRAPHY Routine 02/06/2019 from Last 3 Months or Most Recently Relevant to Health Maintenance Results * [place] ARTHROCENTESIS ASPIR&/INJ MAJOR JT/BURSA W/O US (06/06/2025 [...] Most Recently Relevant to Health Maintenance [place] [id number] [place] [id number] [place] [id number] Care Teams Telecom Manager Relationship Specialty Start Date End Date Jinny Duarte MD [address] [facility] [address] [address] PCP - General Family Practice 08/30/24 Garo Townsend MD [address] [place] [address] Consulting Physician Cardiology 07/27/24 Rossy Bella PA [address] [place] [address] Physician Residential Pest Control Technician Orthopedic Surgery 09/14/24
--- OUTSIDE RECORDS SUMMARY | 2025-08-24 10:46 | XMS_ITS | Encounter Summary ---
Author Organization [facility] Facility Care Team Providers Care [employer] Name Role Phone Suman Houser MD Primary Care Provider + [phone] Garo Townsend MD Unavailable + [phone] Jinny Duarte MD Primary Care Provider Rossy Bella Unavailable [phone] Encounter Details Date Type Department Care Team (Latest Contact Info) Description 09/26/2018 Orders Only [facility]IN[facility] ProviderGalileo MD [address] [place] [id number] Social History Tobacco Use Types Packs/Day Years Used Date Smoking Tobacco: Never Assessed Comments Unknown Sex and Gender Information Value Date Recorded Sex Assigned at Not on file Legal Sex Female 8:07 PM [employer] Gender Identity Female 08/07/2020 12:06 PM CDT Sexual Orientation Straight 08/07/2020 12 :06 PM CDT documented as of this encounter Plan of Treatment Not on file documented as of this encounter Procedures Procedure Name Priority Date/Time Associated Diagnosis Comments AUDIOLOGY RECORD 09/26/2018 12:0 0 AM [employer] documented in this encounter Results * AUDIOLOGY RECORD (09/26/2018 12:00 AM WASHING [employer]ACH[employer]) Narrative 09/26/2018 12:00 AM W[employer]ING [employer] Ordered by an unspecified provider. us Historical Provider NURSING COMMUNICATION Fin al Result documented in this encounter Visit Diagnoses Not on filedocumented in this encounter Care Teams [employer] Relationship Specialty Start Date End Date Suman Houser MD PCP - General Family Practice 08/21/19 08/29/24 Jinny Duarte MD [address] [facility] [address] [place] [address] PCP - General Family Practice 08/30/24 Garo Townsend MD [address] [place] [address] [address] Consulting Physician Cardiology 07/27/24 Rossy Bella PA [address] [place] [address] [place] [id number] Physician Emergency Department Coordinator Orthopedic Surgery 09/14/24 documented as of this encounter
== END 2025-08-23 10:41 | disposition home or self-care (01) ==
LOC: ANHLAB 08-24 10:42
PROVIDERS: PCP Family Medicine; Visit Provider Plastic Surgery
DX: L60.2 Onychogryphosis (principal)
CPT/HCPCS: 88304

== ENCOUNTER 2025-10-03 14:50 | Outpatient (CLI) | payer OTHER, SELFPAY ==
--- NOTE | ~2025-10-03 | US_ITS ---
EXAMINATION: US thyroid DATE: 10/03/2025 16:05 INDICATION: Nontoxic goiter TECHNIQUE: Multiple ultrasound images of the thyroid were obtained. COMPARISON: 08/23/2024 FINDINGS: The right thyroid lobe measures 4.9 x 1.5 x 1.2 cm. The left thyroid lobe measures 4.3 x 1.9 x 1.0 cm. There are multiple solid hypoechoic or very hypoechoic nodules which are wider than tall with smooth margins and without echogenic foci in both the left and right thyroid lobes. (TI-RADS 4, moderately suspicious , FNA if >=1.5 cm, annual followup is >=1 cm). The largest is located at the cephalad aspect of the right thyroid has increased from 7 mm to 8 mm in maximal diameter. The remainder all measure 5 mm or smaller. The prior 1 cm TI RADS 4 solid hypoechoic nodule in the inferior left thyroid lobe has increased to 1.2 cm due to the interval development of small amount of anechoic fluid surrounding the otherwise unchanged solid central solid component. Finally there is a 9 mm anechoic TI RADS 1 cystic nodule at the thyroid isthmus. IMPRESSION: 1. No significant change in a multinodular goiter. Recommend additional 1 year ultrasound follow-up. Reviewed, dictated and finalized at location A. [facility]
== END 2025-10-03 14:51 | disposition home or self-care (01) ==
LOC: MICIMG 14:50
PROVIDERS: PCP Family Medicine; Visit Provider Family Medicine
DX: E04.9 Nontoxic goiter, unspecified (principal)
CPT/HCPCS: 76536